=== PATIENT | female | born 1990 | race Caucasian/White ===

== ENCOUNTER 2017-04-08 07:54 | Emergency (ER) | payer OTHER ==
[~2017-04-08] VITALS: Ht 170.2 cm; Wt 113.6 kg
[2017-04-08] MEDS ORDERED: ESCI20TA PO (08:07)
[2017-04-08] MEDS ORDERED: ATOR1TAB21 PO (08:07)
[2017-04-08] MEDS ORDERED: DOXE10CA PO (08:07)
[2017-04-08] MEDS ORDERED: TOPI50TA9 PO (08:07)
[2017-04-08] MEDS ORDERED: CLON0.2T PO (08:07)
[2017-04-08] MEDS ORDERED: METH10CO PO (08:07)
[2017-04-08] MEDS ORDERED: ONDANSETRON 4 MG ORAL DISINTEGRATING TAB (S0181) PO ONE (08:30)
[2017-04-08] MEDS ORDERED: KETOROLAC 60 MG/2 ML VIAL (J1885) IM ONE (08:30)
[2017-04-08] MEDS ORDERED: ZOFR4TAB3 PO (08:53)
[2017-04-08 09:10] VITALS: BP 140/93
== END 2017-04-08 09:11 | disposition home or self-care (01) ==
LOC: M ED 07:54
DX: J06.9 Acute upper respiratory infection, unspecified (principal); I10 Essential (primary) hypertension; E78.00 Pure hypercholesterolemia, unspecified; E28.2 Polycystic ovarian syndrome; F11.10 Opioid abuse, uncomplicated; Z79.899 Other long term (current) drug therapy; F17.200 Nicotine dependence, unspecified, uncomplicated
CPT/HCPCS: 87880; 96372; 99284; J1885

== ENCOUNTER 2017-04-23 11:02 | Emergency (ER) | payer OTHER ==
[~2017-04-23] VITALS: Ht 170.2 cm; Wt 110.0 kg
[~2017-04-23 11:02] MED LIST: ATOR1TAB21 PO; CLON0.2T PO; DOXE10CA PO; ESCI20TA PO; METH10CO PO; TOPI50TA9 PO; ZOFR4TAB3 PO
[2017-04-23] MEDS ORDERED: METF500T13 PO (11:22)
[2017-04-23] MEDS ORDERED: NS 1,000 ML IV ONE (12:00)
[2017-04-23 12:32] LABS: BASO # 0.1 10^3/uL (0.0-0.2); BASO % 0.5 % (0.0-1.0); EOS # 0.2 10^3/uL (0.0-0.50); EOS % 2.4 % (0.0-3.0); IMMATURE GRANULOCYTE % 0.2 % (0-0); LYMPH # 3.8 10^3/uL (1.5-6.5); LYMPH % 40.8 % (24.0-44.0); MEAN CORPUSCULAR HEMOGLOBIN 30.2 pg (27.0-33.0); MEAN CORPUSCULAR HGB CONC 33.5 g/dl (32.0-36.5); MEAN CORPUSCULAR VOLUME 90.2 fl (80.0-96.0); MONO # 0.6 10^3/uL (0.0-0.8); MONO % 6.9 % (0.0-5.0); NEUTROPHILS # 4.6 10^3/uL (1.8-7.7); NEUTROPHILS % 49.2 % (36.0-66.0); PLATELET COUNT, AUTOMATED 375 10^3/uL (150-450); RED CELL DISTRIBUTION WIDTH 12.4 % (11.5-14.5); WHITE BLOOD COUNT 9.3 10^3/uL (4.0-10.0)
[2017-04-23 13:10] LABS: ALBUMIN 4.1 GM/DL (3.2-5.2); ALBUMIN/GLOBULIN RATIO 0.77 (1.00-1.93); ALKALINE PHOSPHATASE 77 U/L (45-117); ALT/SGPT 29 U/L (12-78); ANION GAP 6 MEQ/L (8-16); AST/SGOT 23 U/L (7-37); BILIRUBIN,DIRECT 0.1 MG/DL (0.0-0.2); BILIRUBIN,TOTAL 0.7 MG/DL (0.2-1.0); BLOOD UREA NITROGEN 13 MG/DL (7-18); CALCIUM LEVEL 9.8 MG/DL (8.5-10.1); CARBON DIOXIDE LEVEL 30 MEQ/L (21-32); CHLORIDE LEVEL 98 MEQ/L (98-107); GLOMERULAR FILTRATION RATE > 60.0 (>60); GLUCOSE, FASTING 87 MG/DL (70-105); MAGNESIUM LEVEL 2.3 MG/DL (1.8-2.4); PHOSPHORUS LEVEL 4.3 MG/DL (2.5-4.9); POTASSIUM SERUM 3.7 MEQ/L (3.5-5.1); SODIUM LEVEL 134 MEQ/L (136-145); TOTAL PROTEIN 9.4 GM/DL (6.4-8.2)
[2017-04-23 14:01] VITALS: BP 104/63
== END 2017-04-23 14:04 | disposition home or self-care (01) ==
LOC: M ED 11:02
DX: F41.9 Anxiety disorder, unspecified (principal); J06.9 Acute upper respiratory infection, unspecified; E86.0 Dehydration; I10 Essential (primary) hypertension; E78.00 Pure hypercholesterolemia, unspecified; E28.2 Polycystic ovarian syndrome; N80.9 Endometriosis, unspecified; B19.20 Unspecified viral hepatitis C without hepatic coma; F15.21 Other stimulant dependence, in remission; Z79.899 Other long term (current) drug therapy; Z79.891 Long term (current) use of opiate analgesic; F17.210 Nicotine dependence, cigarettes, uncomplicated

== ENCOUNTER → 2017-06-25 | Outpatient (CLI) | payer OTHER ==
[2017-06-25 10:15] LABS: HEMATOCRIT 35.9 % (36.0-47.0); HEMOGLOBIN 11.8 g/dl (12.0-16.0); MEAN CORPUSCULAR HEMOGLOBIN 29.3 pg (27.0-33.0); MEAN CORPUSCULAR HGB CONC 32.9 g/dl (32.0-36.5); MEAN CORPUSCULAR VOLUME 89.1 fl (80.0-96.0); PLATELET COUNT, AUTOMATED 316 10^3/uL (150-450); RED BLOOD COUNT 4.03 10^6/uL (4.00-5.40); RED CELL DISTRIBUTION WIDTH 12.5 % (11.5-14.5); WHITE BLOOD COUNT 9.5 10^3/uL (4.0-10.0)
[2017-06-25 10:24] LABS: ALBUMIN 3.8 GM/DL (3.2-5.2); ALBUMIN/GLOBULIN RATIO 0.97 (1.00-1.93); ALKALINE PHOSPHATASE 74 U/L (45-117); ALT/SGPT 23 U/L (12-78); ANION GAP 6 MEQ/L (8-16); AST/SGOT 18 U/L (7-37); BILIRUBIN,TOTAL 0.3 MG/DL (0.2-1.0); BLOOD UREA NITROGEN 9 MG/DL (7-18); CALCIUM LEVEL 9.3 MG/DL (8.5-10.1); CARBON DIOXIDE LEVEL 32 MEQ/L (21-32); CHLORIDE LEVEL 99 MEQ/L (98-107); CREATININE FOR GFR 0.58 MG/DL (0.55-1.02); GLOMERULAR FILTRATION RATE > 60.0 (>60); GLUCOSE, FASTING 107 MG/DL (70-105); POTASSIUM SERUM 4.2 MEQ/L (3.5-5.1); SODIUM LEVEL 137 MEQ/L (136-145); TOTAL PROTEIN 7.7 GM/DL (6.4-8.2)
[2017-06-25 11:46] LABS: CHLAMYDIA DNA AMPLIFICATION NEGATIVE (NEGATIVE); GC DNA AMPLIFICATION NEGATIVE (NEGATIVE)
[2017-06-25 18:06] LABS: HEPATITIS B SURFACE ANTIGEN NEGATIVE (NEGATIVE)
[2017-06-25 18:11] LABS: HIV 1&2 SCREEN CENTAUR NEGATIVE (NEGATIVE)
[2017-06-25 18:17] LABS: HEPATITIS C VIRUS ABY INDEX > 11.0 INDEX (<0.8)
[2017-06-30 00:08] LABS: HCV RNA NAA QUALITATIVE Negative (Negative)
== END ==
LOC: M WUC 08:06
DX: F11.20 Opioid dependence, uncomplicated (principal)
CPT/HCPCS: 80053

== ENCOUNTER 2017-11-11 11:58 | Inpatient (IN) | payer OTHER, SELFPAY ==
[2017-11-11 13:34] LABS: HEMATOCRIT 37.1 % (36.0-47.0); HEMOGLOBIN 12.4 g/dl (12.0-15.5); MEAN CORPUSCULAR HEMOGLOBIN 28.2 pg (27.0-33.0); MEAN CORPUSCULAR HGB CONC 33.4 g/dl (32.0-36.5); MEAN CORPUSCULAR VOLUME 84.5 fl (80.0-96.0); PLATELET COUNT, AUTOMATED 330 10^3/uL (150-450); RED BLOOD COUNT 4.39 10^6/uL (4.00-5.40); RED CELL DISTRIBUTION WIDTH 13.2 % (11.5-14.5)
[2017-11-11 13:59] LABS: CONTROL LINE HCG INT CTR LINE PRESENT; HCG, SERUM QUALITATIVE NEGATIVE (NEGATIVE)
[2017-11-11 14:19] LABS: ALBUMIN 3.8 GM/DL (3.2-5.2); ALKALINE PHOSPHATASE 66 U/L (45-117); ALT/SGPT 30 U/L (12-78); ANION GAP 9 MEQ/L (8-16); AST/SGOT 17 U/L (7-37); BILIRUBIN,DIRECT 0.1 MG/DL (0.0-0.2); BILIRUBIN,TOTAL 0.4 MG/DL (0.2-1.0); BLOOD UREA NITROGEN 8 MG/DL (7-18); CARBON DIOXIDE LEVEL 24 MEQ/L (21-32); CHLORIDE LEVEL 111 MEQ/L (98-107); CREATININE FOR GFR 0.71 MG/DL (0.55-1.30); ETHYL ALCOHOL (ETHANOL) < 0.003 % (0.000-0.010); GLOMERULAR FILTRATION RATE > 60.0 (>60); GLUCOSE, FASTING 128 MG/DL (70-100); POTASSIUM SERUM 3.9 MEQ/L (3.5-5.1); SALICYLATE LEVEL < 1.7 MG/DL (5.0-30.0); SODIUM LEVEL 144 MEQ/L (136-145); TOTAL PROTEIN 7.6 GM/DL (6.4-8.2)
[2017-11-11 14:42] LABS: AMPHETAMINES LEVEL URINE NEGATIVE (NEGATIVE); BARBITURATES URINE NEGATIVE (NEGATIVE); BENZODIAZEPINES URINE NEGATIVE (NEGATIVE); CANNABINOIDS URINE NEGATIVE (NEGATIVE); COCAINE METABOLITE URINE NEGATIVE (NEGATIVE); METHADONE URINE NEGATIVE (NEGATIVE); OPIATES URINE NEGATIVE (NEGATIVE); PHENCYCLIDINE URINE NEGATIVE (NEGATIVE)
[2017-11-11 15:28] LABS: ACETAMINOPHEN LEVEL < 2.0 UG/ML (10.0-30.0)
[2017-11-11] MEDS ORDERED: MAALOX 30 ML SUSP *UDC PO (16:15)
[2017-11-11] MEDS ORDERED: MOM 30ML SUSPENSION UDC PO (16:15)
[2017-11-11] MEDS: rOPINIRole 1MG TAB PO (21:01)
[2017-11-11] MEDS: zolPIDEM TARTRATE 5 MG TAB PO (21:01)
[2017-11-11] MEDS: GABAPENTIN 300 MG CAP PO (21:01)
[2017-11-11] MEDS: cloNIDine 0.2 MG TAB PO (21:04)
[2017-11-12] MEDS: cloNIDine 0.2 MG TAB PO ×3 (08:03→21:08)
[2017-11-12] MEDS: NICOTINE 21MG/24HR 1 EA TRANSDERMAL TD (08:04)
[2017-11-12] MEDS: CitaloPRAM (CeleXA) 20 MG TAB PO (08:04)
[2017-11-12] MEDS: GABAPENTIN 300 MG CAP PO ×3 (08:04→21:05)
[2017-11-12] MEDS: OMEPRAZOLE 20 MG CAP PO (11:12)
[2017-11-12 11:15] LABS: HEMATOCRIT 38.5 % (36.0-47.0); MEAN CORPUSCULAR HEMOGLOBIN 28.2 pg (27.0-33.0); MEAN CORPUSCULAR HGB CONC 33.8 g/dl (32.0-36.5); MEAN CORPUSCULAR VOLUME 83.5 fl (80.0-96.0); PLATELET COUNT, AUTOMATED 357 10^3/uL (150-450); RED BLOOD COUNT 4.61 10^6/uL (4.00-5.40); RED CELL DISTRIBUTION WIDTH 13.2 % (11.5-14.5); WHITE BLOOD COUNT 9.5 10^3/uL (4.0-10.0)
[2017-11-12 11:43] LABS: ALBUMIN 4.1 GM/DL (3.2-5.2); ALBUMIN/GLOBULIN RATIO 1.05 (1.00-1.93); ALKALINE PHOSPHATASE 70 U/L (45-117); ALT/SGPT 67 U/L (12-78); ANION GAP 8 MEQ/L (8-16); AST/SGOT 35 U/L (7-37); BILIRUBIN,TOTAL 0.5 MG/DL (0.2-1.0); BLOOD UREA NITROGEN 10 MG/DL (7-18); CALCIUM LEVEL 9.2 MG/DL (8.5-10.1); CARBON DIOXIDE LEVEL 25 MEQ/L (21-32); CHLORIDE LEVEL 107 MEQ/L (98-107); CPK CREATINE PHOSPHOKINASE 55 U/L (26-192); CREATININE FOR GFR 0.72 MG/DL (0.55-1.30); GLOMERULAR FILTRATION RATE > 60.0 (>60); GLUCOSE, FASTING 92 MG/DL (70-100); MAGNESIUM LEVEL 2.3 MG/DL (1.8-2.4); POTASSIUM SERUM 3.8 MEQ/L (3.5-5.1); SODIUM LEVEL 140 MEQ/L (136-145)
[2017-11-12 12:07] LABS: ESTIMATED AVERAGE GLUCOSE 105 MG/DL (60-110); HEMOGLOBIN A1c 5.3 %
[2017-11-12] MEDS: ONDANSETRON 4 MG TAB (S0181) PO (19:43)
[2017-11-12] MEDS: zolPIDEM TARTRATE 5 MG TAB PO (21:09)
[2017-11-12] MEDS: rOPINIRole 1MG TAB PO (21:09)
[2017-11-13] MEDS: NICOTINE 21MG/24HR 1 EA TRANSDERMAL TD (08:05)
[2017-11-13] MEDS: cloNIDine 0.2 MG TAB PO ×3 (08:06→20:10)
[2017-11-13] MEDS: OMEPRAZOLE 20 MG CAP PO (08:06)
[2017-11-13] MEDS: CitaloPRAM (CeleXA) 20 MG TAB PO (08:06)
[2017-11-13] MEDS: GABAPENTIN 300 MG CAP PO ×2 (08:06→15:20)
[2017-11-13] MEDS: ONDANSETRON 4 MG TAB (S0181) PO ×3 (08:06→20:10)
[2017-11-13] MEDS: zolPIDEM TARTRATE 10MG TAB PO (20:11)
[2017-11-13] MEDS: ACETAMINOPHEN TAB 650MG DOSE (2X325MG) PO (20:11)
[2017-11-13] MEDS: GABAPENTIN 400 MG CAP PO (20:11)
[2017-11-13] MEDS: rOPINIRole 1MG TAB PO (20:11)
[2017-11-14] MEDS: ONDANSETRON 4 MG TAB (S0181) PO ×3 (06:17→16:35)
[2017-11-14] MEDS: cloNIDine 0.2 MG TAB PO ×4 (08:19→20:01)
[2017-11-14] MEDS: OMEPRAZOLE 20 MG CAP PO (08:19)
[2017-11-14] MEDS: CitaloPRAM (CeleXA) 20 MG TAB PO (08:19)
[2017-11-14] MEDS: GABAPENTIN 400 MG CAP PO ×3 (08:19→20:01)
[2017-11-14] MEDS: NICOTINE 21MG/24HR 1 EA TRANSDERMAL TD (08:19)
[2017-11-14] MEDS: ACETAMINOPHEN TAB 650MG DOSE (2X325MG) PO ×2 (11:43→20:01)
[2017-11-14] MEDS: rOPINIRole 1MG TAB PO (20:01)
[2017-11-14] MEDS: zolPIDEM TARTRATE 10MG TAB PO (20:59)
[2017-11-15] MEDS: ONDANSETRON 4 MG TAB (S0181) PO (05:42)
[2017-11-15] MEDS: CitaloPRAM (CeleXA) 20 MG TAB PO (08:23)
[2017-11-15] MEDS: cloNIDine 0.2 MG TAB PO ×2 (08:23→13:06)
[2017-11-15] MEDS: GABAPENTIN 400 MG CAP PO (08:23)
[2017-11-15] MEDS: OMEPRAZOLE 20 MG CAP PO (08:23)
[2017-11-15] MEDS: NICOTINE 21MG/24HR 1 EA TRANSDERMAL TD (08:25)
== END 2017-11-15 14:45 | disposition home or self-care (01) | DRG 756 ==
LOC: M ED 11:58 → M ED INP 16:08 → M PSY 17:15
DX: F41.9 Anxiety disorder, unspecified (principal); F32.9 Major depressive disorder, single episode, unspecified; F19.10 Other psychoactive substance abuse, uncomplicated; E66.9 Obesity, unspecified; M79.662 Pain in left lower leg; M79.661 Pain in right lower leg; F17.210 Nicotine dependence, cigarettes, uncomplicated; G25.81 Restless legs syndrome; K21.9 Gastro-esophageal reflux disease without esophagitis; Z86.19 Personal history of other infectious and parasitic diseases; Z91.5 Personal history of self-harm; Z68.37 Body mass index [BMI] 37.0-37.9, adult; Z79.899 Other long term (current) drug therapy

== ENCOUNTER 2018-01-31 19:09 | Inpatient (IN) | payer OTHER, MEDICAID ==
[2018-01-31 20:00] LABS: HEMATOCRIT 38.4 % (36.0-47.0); HEMOGLOBIN 12.4 g/dl (12.0-15.5); MEAN CORPUSCULAR HGB CONC 32.3 g/dl (32.0-36.5); MEAN CORPUSCULAR VOLUME 86.7 fl (80.0-96.0); PLATELET COUNT, AUTOMATED 277 10^3/uL (150-450); RED BLOOD COUNT 4.43 10^6/uL (4.00-5.40); WHITE BLOOD COUNT 8.9 10^3/uL (4.0-10.0)
[2018-01-31 20:07] LABS: CONTROL LINE HCG INT CTR LINE PRESENT; HCG, SERUM QUALITATIVE NEGATIVE (NEGATIVE)
[2018-01-31 20:11] LABS: AMPHETAMINES LEVEL URINE NEGATIVE (NEGATIVE); BARBITURATES URINE NEGATIVE (NEGATIVE); BENZODIAZEPINES URINE NEGATIVE (NEGATIVE); CANNABINOIDS URINE POSITIVE (NEGATIVE); COCAINE METABOLITE URINE POSITIVE (NEGATIVE); METHADONE URINE NEGATIVE (NEGATIVE); OPIATES URINE NEGATIVE (NEGATIVE); PHENCYCLIDINE URINE NEGATIVE (NEGATIVE)
[2018-01-31 20:22] LABS: ACETAMINOPHEN LEVEL < 2.0 UG/ML (10.0-30.0); ALBUMIN 3.9 GM/DL (3.2-5.2); ALBUMIN/GLOBULIN RATIO 1.03 (1.00-1.93); ALKALINE PHOSPHATASE 62 U/L (45-117); ALT/SGPT 25 U/L (12-78); ANION GAP 7 MEQ/L (8-16); AST/SGOT 11 U/L (7-37); BILIRUBIN,DIRECT 0.2 MG/DL (0.0-0.2); BILIRUBIN,TOTAL 0.8 MG/DL (0.2-1.0); BLOOD UREA NITROGEN 7 MG/DL (7-18); CALCIUM LEVEL 8.9 MG/DL (8.5-10.1); CARBON DIOXIDE LEVEL 26 MEQ/L (21-32); CHLORIDE LEVEL 107 MEQ/L (98-107); CREATININE FOR GFR 0.78 MG/DL (0.55-1.30); ETHYL ALCOHOL (ETHANOL) < 0.003 % (0.000-0.010); GLOMERULAR FILTRATION RATE > 60.0 (>60); GLUCOSE, FASTING 121 MG/DL (70-100); POTASSIUM SERUM 3.9 MEQ/L (3.5-5.1); SALICYLATE LEVEL 2.7 MG/DL (5.0-30.0); SODIUM LEVEL 140 MEQ/L (136-145); THYROID STIMULATING HORMONE 0.443 uIU/ML (0.358-3.740); TOTAL PROTEIN 7.7 GM/DL (6.4-8.2)
[2018-01-31] MEDS ORDERED: traZODone 50 MG TAB PO (21:15)
[2018-01-31] MEDS ORDERED: MAALOX 30 ML SUSP *UDC PO (21:15)
[2018-01-31] MEDS ORDERED: MOM 30ML SUSPENSION UDC PO (21:15)
[2018-02-01] MEDS: cloNIDine 0.2 MG TAB PO (08:08)
[2018-02-01] MEDS: GABAPENTIN 400 MG CAP PO ×3 (08:09→23:05)
[2018-02-01] MEDS: ESCITALOPRAM OXALATE 10 MG TAB (LEXAPRO) PO (08:09)
[2018-02-01] MEDS: cloNIDine 0.1 MG TAB PO ×3 (12:00→23:04)
[2018-02-01] MEDS: BUPRENORPHINE/NALOXONE 8-2MG SUBLINGUAL TABLET(SUBOXONE) SL (13:53)
[2018-02-01] MEDS: NICOTINE 21MG/24HR 1 EA TRANSDERMAL TD (16:03)
[2018-02-01] MEDS ORDERED: zolPIDEM TARTRATE 10MG TAB PO (21:00)
[2018-02-01] MEDS: QUEtiapine FUMARATE 50 MG TAB PO (23:04)
[2018-02-02] MEDS: cloNIDine 0.1 MG TAB PO ×4 (06:27→23:28)
[2018-02-02] MEDS: GABAPENTIN 400 MG CAP PO ×3 (08:20→21:54)
[2018-02-02] MEDS: ESCITALOPRAM OXALATE 10 MG TAB (LEXAPRO) PO (08:20)
[2018-02-02] MEDS: BUPRENORPHINE/NALOXONE 8-2MG SUBLINGUAL TABLET(SUBOXONE) SL (09:34)
[2018-02-02] MEDS ORDERED: QUEtiapine FUMARATE 50 MG TAB PO (21:00)
[2018-02-02] MEDS: BENZTROPINE 1 MG TAB PO (21:54)
[2018-02-02] MEDS: QUEtiapine FUMARATE 200 MG TAB PO (21:54)
[2018-02-02] MEDS: PRAZOSIN 1 MG CAP PO (21:55)
[2018-02-03] MEDS: cloNIDine 0.1 MG TAB PO ×4 (06:00→23:14)
[2018-02-03] MEDS: BUPRENORPHINE/NALOXONE 8-2MG SUBLINGUAL TABLET(SUBOXONE) SL (09:19)
[2018-02-03] MEDS: ESCITALOPRAM OXALATE 10 MG TAB (LEXAPRO) PO (09:19)
[2018-02-03] MEDS: GABAPENTIN 400 MG CAP PO ×3 (09:20→20:39)
[2018-02-03] MEDS: BENZTROPINE 1 MG TAB PO (20:39)
[2018-02-03] MEDS: PRAZOSIN 1 MG CAP PO (20:39)
[2018-02-03] MEDS: QUEtiapine FUMARATE 100 MG TAB PO (20:41)
[2018-02-03] MEDS: PILL CRUSHER/CUTTER 1 EACH XX (20:41)
[2018-02-03] MEDS: ACETAMINOPHEN TAB 650MG DOSE (2X325MG) PO (20:42)
[2018-02-04] MEDS: cloNIDine 0.1 MG TAB PO ×4 (05:55→23:29)
[2018-02-04] MEDS: GABAPENTIN 400 MG CAP PO ×3 (09:08→20:55)
[2018-02-04] MEDS: ESCITALOPRAM OXALATE 10 MG TAB (LEXAPRO) PO (09:08)
[2018-02-04] MEDS: BUPRENORPHINE/NALOXONE 8-2MG SUBLINGUAL TABLET(SUBOXONE) SL (09:34)
[2018-02-04] MEDS: PILL CRUSHER/CUTTER 1 EACH XX (09:35)
[2018-02-04] MEDS: PRAZOSIN 1 MG CAP PO (20:55)
[2018-02-04] MEDS: BENZTROPINE 1 MG TAB PO (20:55)
[2018-02-04] MEDS: QUEtiapine FUMARATE 100 MG TAB PO (20:55)
[2018-02-05] MEDS: cloNIDine 0.1 MG TAB PO ×4 (06:15→23:05)
[2018-02-05] MEDS: BUPRENORPHINE/NALOXONE 8-2MG SUBLINGUAL TABLET(SUBOXONE) SL (09:29)
[2018-02-05] MEDS: ESCITALOPRAM OXALATE 10 MG TAB (LEXAPRO) PO (09:29)
[2018-02-05] MEDS: GABAPENTIN 400 MG CAP PO ×3 (09:29→20:30)
[2018-02-05] MEDS: BENZTROPINE 1 MG TAB PO (20:29)
[2018-02-05] MEDS: PRAZOSIN 1 MG CAP PO (20:30)
[2018-02-05] MEDS: QUEtiapine FUMARATE 100 MG TAB PO (20:30)
[2018-02-06] MEDS: cloNIDine 0.1 MG TAB PO ×4 (06:16→22:54)
[2018-02-06] MEDS: BUPRENORPHINE/NALOXONE 8-2MG SUBLINGUAL TABLET(SUBOXONE) SL (10:03)
[2018-02-06] MEDS: GABAPENTIN 400 MG CAP PO ×3 (10:03→20:55)
[2018-02-06] MEDS: ESCITALOPRAM OXALATE 10 MG TAB (LEXAPRO) PO (10:03)
[2018-02-06] MEDS: ACETAMINOPHEN TAB 650MG DOSE (2X325MG) PO ×2 (10:04→18:02)
[2018-02-06] MEDS: BENZTROPINE 1 MG TAB PO (20:55)
[2018-02-06] MEDS: QUEtiapine FUMARATE 100 MG TAB PO (20:55)
[2018-02-06] MEDS: PRAZOSIN 1 MG CAP PO (20:55)
[2018-02-07] MEDS: cloNIDine 0.1 MG TAB PO ×4 (06:00→23:01)
[2018-02-07] MEDS: ESCITALOPRAM OXALATE 10 MG TAB (LEXAPRO) PO (09:04)
[2018-02-07] MEDS: GABAPENTIN 400 MG CAP PO ×3 (09:04→20:47)
[2018-02-07] MEDS: BUPRENORPHINE/NALOXONE 8-2MG SUBLINGUAL TABLET(SUBOXONE) SL (09:06)
[2018-02-07] MEDS: QUEtiapine FUMARATE 100 MG TAB PO (20:46)
[2018-02-07] MEDS: BENZTROPINE 1 MG TAB PO (20:46)
[2018-02-07] MEDS: PRAZOSIN 1 MG CAP PO (20:47)
[2018-02-07] MEDS: ACETAMINOPHEN TAB 650MG DOSE (2X325MG) PO (23:04)
[2018-02-08] MEDS: cloNIDine 0.1 MG TAB PO ×2 (06:00→11:20)
[2018-02-08] MEDS: ESCITALOPRAM OXALATE 10 MG TAB (LEXAPRO) PO (09:15)
[2018-02-08] MEDS: BUPRENORPHINE/NALOXONE 8-2MG SUBLINGUAL TABLET(SUBOXONE) SL (09:15)
[2018-02-08] MEDS: GABAPENTIN 400 MG CAP PO (09:15)
== END 2018-02-08 13:25 | disposition home or self-care (01) | DRG 751 ==
LOC: M PSY 02-04 19:24 → M ED 19:09 → M ED INP 21:13 → M PSY 22:15
DX: F33.1 Major depressive disorder, recurrent, moderate (principal); R45.851 Suicidal ideations; Z79.899 Other long term (current) drug therapy; G25.81 Restless legs syndrome; K21.9 Gastro-esophageal reflux disease without esophagitis; E66.9 Obesity, unspecified; Z68.38 Body mass index [BMI] 38.0-38.9, adult; G47.00 Insomnia, unspecified; F17.210 Nicotine dependence, cigarettes, uncomplicated; N80.9 Endometriosis, unspecified; E28.2 Polycystic ovarian syndrome

== ENCOUNTER → 2018-03-11 | Outpatient (CLI) | payer OTHER | LOC: M OUTALCOH 08:12 | DX: F11.20 Opioid dependence, uncomplicated (principal) ==

== ENCOUNTER 2018-03-28 09:29 | Outpatient (RCR) | payer OTHER | END 2018-04-13 | LOC: M OUTALCOH 04-06 15:00 | DX: F11.20 Opioid dependence, uncomplicated (principal); F14.20 Cocaine dependence, uncomplicated ==

== ENCOUNTER 2018-04-15 08:32 | Outpatient (RCR) | payer OTHER | END 2018-05-13 | LOC: M OUTALCOH 08:32 | DX: F11.20 Opioid dependence, uncomplicated (principal); F14.20 Cocaine dependence, uncomplicated ==

== ENCOUNTER 2018-07-02 17:08 | Emergency (ER) | payer OTHER ==
[~2018-07-02] VITALS: Ht 170.2 cm; Wt 130.0 kg
[~2018-07-02 17:08] MED LIST changes: +AMBI10TA PO; +AMBI5TAB PO; +BACT800T5 PO; +BENZ-52 PO; +CATA0.2T PO; +CIPR-249 PO; +CLONI1TA PO; +GABA-845 PO; +LEXA1TAB2 PO; +METF500T13 PO; +MINI1CAP PO; +NEUR400C PO; +NEUR600T PO; +NICO21PAT TD; +OMEP10CASR PO; +OMEP20CA3 PO; +PYRI1TAB5 PO; +QUET1TAB8 PO; +REQU1TAB16 PO; +SUBO12MI; +SUBO12MI SL; +ZOFR4TAB14 PO; -ZOFR4TAB3 PO; +ZOLP10TA2 PO
[2018-07-02] MEDS ORDERED: SUBO8MIS PO (17:16)
[2018-07-02 17:50] LABS: HEMATOCRIT 43.2 % (36.0-47.0); HEMOGLOBIN 14.6 g/dl (12.0-15.5); MEAN CORPUSCULAR HGB CONC 33.8 g/dl (32.0-36.5); MEAN CORPUSCULAR VOLUME 85.9 fl (80.0-96.0); PLATELET COUNT, AUTOMATED 374 10^3/uL (150-450); RED BLOOD COUNT 5.03 10^6/uL (4.00-5.40); WHITE BLOOD COUNT 9.9 10^3/uL (4.0-10.0)
[2018-07-02 18:25] LABS: HCG, SERUM QUALITATIVE NEGATIVE (NEGATIVE)
[2018-07-02 18:28] LABS: AMPHETAMINES LEVEL URINE NEGATIVE (NEGATIVE); BARBITURATES URINE NEGATIVE (NEGATIVE); BENZODIAZEPINES URINE NEGATIVE (NEGATIVE); CANNABINOIDS URINE POSITIVE (NEGATIVE); COCAINE METABOLITE URINE POSITIVE (NEGATIVE); METHADONE URINE NEGATIVE (NEGATIVE); OPIATES URINE NEGATIVE (NEGATIVE); PHENCYCLIDINE URINE NEGATIVE (NEGATIVE)
[2018-07-02 18:41] LABS: ACETAMINOPHEN LEVEL < 2.0 UG/ML (10.0-30.0); ALBUMIN 4.4 GM/DL (3.2-5.2); ALT/SGPT 21 U/L (12-78); BILIRUBIN,DIRECT 0.1 MG/DL (0.0-0.2); BILIRUBIN,TOTAL 0.5 MG/DL (0.2-1.0); BLOOD UREA NITROGEN 14 MG/DL (7-18); CALCIUM LEVEL 8.9 MG/DL (8.5-10.1); CARBON DIOXIDE LEVEL 24 MEQ/L (21-32); CHLORIDE LEVEL 103 MEQ/L (98-107); CREATININE FOR GFR 1.08 MG/DL (0.55-1.30); ETHYL ALCOHOL (ETHANOL) < 0.003 % (0.000-0.010); GLOMERULAR FILTRATION RATE > 60.0 (>60); GLUCOSE, FASTING 137 MG/DL (70-100); POTASSIUM SERUM 3.8 MEQ/L (3.5-5.1); SALICYLATE LEVEL < 1.7 MG/DL (5.0-30.0); SODIUM LEVEL 138 MEQ/L (136-145); TOTAL PROTEIN 8.5 GM/DL (6.4-8.2)
[2018-07-02] MEDS ORDERED: QUEtiapine FUMARATE 100 MG TAB PO ONE (21:45)
[2018-07-02] MEDS ORDERED: BENZTROPINE 1 MG TAB PO ONE (21:45)
[2018-07-02] MEDS ORDERED: GABAPENTIN 400 MG CAP PO ONE (21:45)
[2018-07-02] MEDS ORDERED: PRAZOSIN 1 MG CAP PO SCH ×2 (21:45→22:30)
[2018-07-02] MEDS ORDERED: cloNIDine 0.1 MG TAB PO ONE (21:45)
[2018-07-02] MEDS ORDERED: CLON0.2T PO (22:18)
[2018-07-02] MEDS ORDERED: PRAZ5CAP PO (22:18)
[2018-07-02] MEDS ORDERED: cloNIDine 0.2 MG TAB PO ONE (22:30)
[2018-07-02] MEDS ORDERED: PRAZOSIN 1 MG CAP PO ONE (22:30)
[2018-07-03] MEDS ORDERED: BUPRENORPHINE/NALOXONE 8-2MG SUBLINGUAL TABLET(SUBOXONE) SL ONE (09:00)
[2018-07-03] MEDS ORDERED: GABAPENTIN 400 MG CAP PO ONE ×3 (09:45→21:00)
[2018-07-03] MEDS ORDERED: ESCITALOPRAM OXALATE 10 MG TAB (LEXAPRO) PO ONE (09:45)
[2018-07-03] MEDS ORDERED: cloNIDine 0.2 MG TAB PO ONE ×4 (09:45→21:00)
[2018-07-03] MEDS ORDERED: QUEtiapine FUMARATE 50 MG TAB PO ONE (20:45)
[2018-07-03] MEDS ORDERED: QUEtiapine FUMARATE 200 MG TAB PO ONE ×2 (21:00)
[2018-07-03] MEDS ORDERED: PRAZOSIN 1 MG CAP PO SCH (21:00)
[2018-07-03] MEDS ORDERED: PRAZOSIN 1 MG CAP PO ONE (21:00)
[2018-07-03 21:51] VITALS: BP 115/66
[2018-07-03 22:37] VITALS: BP 106/68
== END 2018-07-03 22:46 | disposition short-term general hospital (02) ==
LOC: M ED 17:08
DX: R45.851 Suicidal ideations (principal); F32.9 Major depressive disorder, single episode, unspecified; F14.10 Cocaine abuse, uncomplicated; F41.9 Anxiety disorder, unspecified; E28.2 Polycystic ovarian syndrome; N80.9 Endometriosis, unspecified; F17.200 Nicotine dependence, unspecified, uncomplicated; Z79.899 Other long term (current) drug therapy
CPT/HCPCS: 36415; 80048; 80076; 80307; 84443; 84703; 85027; 99284; G0480

== ENCOUNTER 2018-10-03 12:16 | Emergency (ER) | payer OTHER ==
[~2018-10-03] VITALS: Ht 170.2 cm; Wt 116.0 kg
[~2018-10-03 12:16] MED LIST changes: +PRAZ5CAP PO; +SUBO8MIS PO
[2018-10-03] MEDS ORDERED: RANI75TA13 (12:27)
[2018-10-03] MEDS ORDERED: METF500T13 (12:27)
[2018-10-03] MEDS ORDERED: CLON0.3T (12:27)
[2018-10-03] MEDS ORDERED: ROPI1TAB (12:27)
[2018-10-03] MEDS ORDERED: cloNIDine 0.1 MG TAB PO ONE (13:45)
[2018-10-03 14:44] LABS: BASO # 0.1 10^3/uL (0.0-0.2); BASO % 0.7 % (0.0-1.0); EOS # 0.2 10^3/uL (0.0-0.50); EOS % 2.8 % (0.0-3.0); HEMATOCRIT 41.1 % (36.0-47.0); HEMOGLOBIN 13.5 g/dl (12.0-15.5); LYMPH # 2.2 10^3/uL (1.5-6.5); LYMPH % 29.3 % (24.0-44.0); MEAN CORPUSCULAR HEMOGLOBIN 28.4 pg (27.0-33.0); MEAN CORPUSCULAR HGB CONC 32.8 g/dl (32.0-36.5); MEAN CORPUSCULAR VOLUME 86.5 fl (80.0-96.0); MONO # 0.5 10^3/uL (0.0-0.8); MONO % 6.5 % (0.0-5.0); NEUTROPHILS # 4.5 10^3/uL (1.8-7.7); NEUTROPHILS % 60.3 % (36.0-66.0); PLATELET COUNT, AUTOMATED 294 10^3/uL (150-450); RED BLOOD COUNT 4.75 10^6/uL (4.00-5.40); WHITE BLOOD COUNT 7.4 10^3/uL (4.0-10.0)
[2018-10-03] MEDS ORDERED: ONDANSETRON 4MG/2ML VIAL (J2405) IV ONE (15:15)
[2018-10-03] MEDS ORDERED: CLON0.3T PO (15:16)
[2018-10-03 15:18] LABS: BLOOD UREA NITROGEN 7 MG/DL (7-18); CALCIUM LEVEL 9.5 MG/DL (8.5-10.1); CARBON DIOXIDE LEVEL 26 MEQ/L (21-32); CHLORIDE LEVEL 108 MEQ/L (98-107); CPK CREATINE PHOSPHOKINASE 136 U/L (26-192); CREATININE FOR GFR 0.64 MG/DL (0.55-1.30); GLOMERULAR FILTRATION RATE > 60.0 (>60); GLUCOSE, FASTING 94 MG/DL (70-100); MB/CK RELATIVE INDEX 1.25 (< OR =4); POTASSIUM SERUM 4.2 MEQ/L (3.5-5.1); SODIUM LEVEL 140 MEQ/L (136-145); TROPONIN I < 0.02 NG/ML (< 0.10)
[2018-10-03] MEDS ORDERED: MACR100C43 PO (16:11)
[2018-10-03 16:23] VITALS: BP 136/76
--- NOTE | 2018-10-03 17:32 | REP ---
RENAL AND BLADDER ULTRASOUND: Real-time sonographic evaluation of the kidneys are performed. The kidneys are normal in size and echotexture, right measuring 12.8 x 4.9 x 2.8 cm and left kidney 12.7 x 5.0 x 4.6 cm. There is no hydronephrosis or nephrolithiasis bilaterally. No renal mass is seen. Urinary bladder is mildly distended and grossly unremarkable. Incidental note is made of diffuse fatty infiltration of the liver which is enlarged, measuring approximately 21.2 cm in length in the mid clavicular line. IMPRESSION: No hydronephrosis or nephrolithiasis. Mild to moderate enlargement of the liver with diffuse fatty infiltration. Electronically Signed by Mitch Quiñones MD 10/03/2018 06:35 P
--- NOTE | 2018-10-04 01:32 | ECGEPIP ---
Stationary ECG Study [facility] - ED Test Date: 2018-10-03 Pat Name: KALE MCGREGOR Department: Room: - Gender: F [employer]ities Tr[employer]: HOLDEN : 1990 Requested By: LANDON CROFT Order Number: [id number] Reading MD: Arash Lamar Measurements Intervals [place] Rate: 98 P: 56 NJ: 165 QRS: 43 QRSD: 83 T: 24 QT: 337 QTc: 431 Interpretive Statements SINUS RHYTHM SIMILAR TO 02/02/18 Electronically Signed On 10-04-2018 1:32:27 EDT by Arash Lamar
== END 2018-10-03 16:28 | disposition home or self-care (01) ==
LOC: M ED 12:16
DX: Z76.0 Encounter for issue of repeat prescription (principal); N39.0 Urinary tract infection, site not specified; R07.89 Other chest pain; K76.0 Fatty (change of) liver, not elsewhere classified; I10 Essential (primary) hypertension; F32.9 Major depressive disorder, single episode, unspecified; F41.9 Anxiety disorder, unspecified; E28.2 Polycystic ovarian syndrome; N80.9 Endometriosis, unspecified; F17.210 Nicotine dependence, cigarettes, uncomplicated; Z79.899 Other long term (current) drug therapy; Z79.84 Long term (current) use of oral hypoglycemic drugs
CPT/HCPCS: 76775; 80048; 81001; 81025; 82550; 82553; 85025; 87088; 87186; 93005; 96374; 99284; J2405

== ENCOUNTER → 2018-11-29 | Outpatient (CLI) | payer OTHER ==
[~2018-11-29] MED LIST changes: +CLON0.3T; +CLON0.3T PO; +MACR100C43 PO; +METF500T13; +RANI75TA13; +ROPI1TAB
[2018-11-29 17:37] LABS: HEMATOCRIT 38.6 % (36.0-47.0); HEMOGLOBIN 12.8 g/dl (12.0-15.5); MEAN CORPUSCULAR HEMOGLOBIN 29.4 pg (27.0-33.0); MEAN CORPUSCULAR HGB CONC 33.2 g/dl (32.0-36.5); MEAN CORPUSCULAR VOLUME 88.5 fl (80.0-96.0); PLATELET COUNT, AUTOMATED 299 10^3/uL (150-450); RED BLOOD COUNT 4.36 10^6/uL (4.00-5.40); WHITE BLOOD COUNT 8.8 10^3/uL (4.0-10.0)
[2018-11-29 18:13] LABS: ALBUMIN 3.6 GM/DL (3.2-5.2); ALT/SGPT 27 U/L (12-78); BILIRUBIN,TOTAL 0.4 MG/DL (0.2-1.0); BLOOD UREA NITROGEN 10 MG/DL (7-18); CALCIUM LEVEL 9.3 MG/DL (8.5-10.1); CARBON DIOXIDE LEVEL 29 MEQ/L (21-32); CHLORIDE LEVEL 100 MEQ/L (98-107); GLOMERULAR FILTRATION RATE > 60.0 (>60); GLUCOSE, FASTING 89 MG/DL (70-100); POTASSIUM SERUM 4.1 MEQ/L (3.5-5.1); SODIUM LEVEL 135 MEQ/L (136-145)
[2018-11-29 21:00] LABS: CHLAMYDIA DNA AMPLIFICATION NEGATIVE (NEGATIVE); GC DNA AMPLIFICATION NEGATIVE (NEGATIVE)
[2018-11-29 21:19] LABS: HCG, SERUM QUALITATIVE NEGATIVE (NEGATIVE)
[2018-11-30 10:24] LABS: HEPATITIS B SURFACE ANTIGEN NEGATIVE (NEGATIVE)
[2018-11-30 10:52] LABS: HIV 1&2 SCREEN CENTAUR NEGATIVE (NEGATIVE)
[2018-11-30 11:01] LABS: HEPATITIS C VIRUS ABY INDEX > 11.0 INDEX (<0.8)
== END ==
LOC: M WUC 14:49
PROVIDERS: ATTEND Family Medicine
DX: F11.20 Opioid dependence, uncomplicated (principal)

== ENCOUNTER 2019-01-24 12:06 | Inpatient (IN) | payer OTHER ==
[~2019-01-24] VITALS: Ht 170.2 cm; Wt 122.2 kg
[~2019-01-24 12:06] MED LIST changes: -METF500T13; -OMEP20CA3 PO; +OMEP20CA4 PO; -RANI75TA13; +RANI75TA13 PO; -ROPI1TAB; +ROPI1TAB PO
[2019-01-24] MEDS ORDERED: METH-872 PO (12:23)
[2019-01-24] MEDS ORDERED: NICOTINE 21MG/24HR 1 EA TRANSDERMAL TD ONE (13:00)
[2019-01-24 13:07] LABS: HEMATOCRIT 35.4 % (36.0-47.0); HEMOGLOBIN 11.8 g/dl (12.0-15.5); MEAN CORPUSCULAR HEMOGLOBIN 30.4 pg (27.0-33.0); MEAN CORPUSCULAR HGB CONC 33.3 g/dl (32.0-36.5); MEAN CORPUSCULAR VOLUME 91.2 fl (80.0-96.0); PLATELET COUNT, AUTOMATED 237 10^3/uL (150-450); RED BLOOD COUNT 3.88 10^6/uL (4.00-5.40); WHITE BLOOD COUNT 8.2 10^3/uL (4.0-10.0)
[2019-01-24 13:15] LABS: HCG, SERUM QUALITATIVE NEGATIVE (NEGATIVE)
[2019-01-24 13:25] LABS: AMPHETAMINES LEVEL URINE NEGATIVE (NEGATIVE); BARBITURATES URINE NEGATIVE (NEGATIVE); BENZODIAZEPINES URINE NEGATIVE (NEGATIVE); CANNABINOIDS URINE NEGATIVE (NEGATIVE); COCAINE METABOLITE URINE NEGATIVE (NEGATIVE); METHADONE URINE POSITIVE (NEGATIVE); OPIATES URINE NEGATIVE (NEGATIVE); PHENCYCLIDINE URINE NEGATIVE (NEGATIVE)
[2019-01-24] MEDS ORDERED: ACETAMINOPHEN 325 MG TAB PO ONE (13:30)
[2019-01-24 13:32] LABS: ACETAMINOPHEN LEVEL < 2.0 UG/ML (10.0-30.0); ALBUMIN 3.7 GM/DL (3.2-5.2); ALT/SGPT 32 U/L (12-78); BILIRUBIN,DIRECT < 0.1 MG/DL (0.0-0.2); BILIRUBIN,TOTAL 0.4 MG/DL (0.2-1.0); BLOOD UREA NITROGEN 10 MG/DL (7-18); CALCIUM LEVEL 9.2 MG/DL (8.5-10.1); CARBON DIOXIDE LEVEL 28 MEQ/L (21-32); CHLORIDE LEVEL 101 MEQ/L (98-107); ETHYL ALCOHOL (ETHANOL) < 0.003 % (0.000-0.010); GLOMERULAR FILTRATION RATE > 60.0 (>60); GLUCOSE, FASTING 145 MG/DL (70-100); POTASSIUM SERUM 4.2 MEQ/L (3.5-5.1); SALICYLATE LEVEL 3.2 MG/DL (5.0-30.0); SODIUM LEVEL 136 MEQ/L (136-145); TOTAL PROTEIN 7.6 GM/DL (6.4-8.2)
[2019-01-24] MEDS ORDERED: ESCI10TA2 PO (14:23)
[2019-01-24] MEDS ORDERED: CLON-412 PO (14:23)
[2019-01-24] MEDS ORDERED: QUET200T2 PO (14:23)
[2019-01-24] MEDS ORDERED: GABA800T4 PO (14:23)
[2019-01-24] MEDS ORDERED: ESCI20TA PO (14:23)
[2019-01-24] MEDS ORDERED: METH10CO PO (14:23)
[2019-01-24] MEDS ORDERED: CLON0.2T PO (14:23)
[2019-01-24] MEDS ORDERED: QUET5TAB PO (14:23)
[2019-01-24] MEDS ORDERED: IBUPROFEN 400 MG TAB PO PRN (15:00)
[2019-01-24] MEDS ORDERED: HALOPERIDOL 5 MG TAB PO PRN (15:00)
[2019-01-24] MEDS ORDERED: [UNRECOGNIZED DRUG - OTHER] TEETH (15:24)
[2019-01-24] MEDS: cloNIDine 0.1 MG TAB PO SCH ×2 (17:03→21:16)
[2019-01-24] MEDS: GABAPENTIN 400 MG CAP PO SCH ×2 (17:04→21:16)
[2019-01-24] MEDS: cloNIDine 0.2 MG TAB PO SCH ×2 (17:04→21:16)
[2019-01-24] MEDS: metFORMIN (GLUCOPHAGE) 500 MG TAB PO SCH (17:06)
[2019-01-24 17:29] VITALS: BP 155/79
[2019-01-24] MEDS ORDERED: ESCITALOPRAM OXALATE 10 MG TAB (LEXAPRO) PO SCH ×3 (21:00)
[2019-01-24] MEDS ORDERED: QUEtiapine FUMARATE 50 MG TAB PO SCH (21:00)
[2019-01-24] MEDS ORDERED: QUEtiapine FUMARATE 200 MG TAB PO SCH (21:00)
[2019-01-24] MEDS: PRAZOSIN 1 MG CAP PO SCH (21:16)
[2019-01-24] MEDS: ACETAMINOPHEN TAB 650MG DOSE (2X325MG) PO PRN (21:18)
[2019-01-24] MEDS: rOPINIRole 1MG TAB PO SCH (21:44)
[2019-01-25 06:44] VITALS: BP 143/87
[2019-01-25] MEDS: metFORMIN (GLUCOPHAGE) 500 MG TAB PO SCH ×2 (08:08→17:54)
[2019-01-25] MEDS: GABAPENTIN 400 MG CAP PO SCH ×3 (08:08→20:57)
[2019-01-25] MEDS: METHADONE 10 MG TAB (S0109) PO SCH (08:08)
[2019-01-25] MEDS: cloNIDine 0.1 MG TAB PO SCH ×2 (08:09→20:56)
[2019-01-25] MEDS: cloNIDine 0.2 MG TAB PO SCH ×3 (08:09→20:57)
[2019-01-25] MEDS: DOXYCYCLINE HYCLATE 100 MG TAB PO SCH ×2 (10:34→20:57)
--- NOTE | 2019-01-25 10:37 | HPEPDOC ---
General Date of Admission Jan 24, 2019 at 15:00 Date of Service: Jan 25, 2019 Attending Physician: JORDAN KIRBY MD Chief Complaint The patient is a 28-year-old female admitted with a reason for visit of Unspecified Depressive Disorder. History of Present Illness David Salgado is a 28-year-old female, with prior medical history significant for obesity, polysubstance abuse with crack, cocaine, marijuana, heroin, currently on methadone. Patient presents for admission on account of suicidal ideation. She was admitted to inpatient psychiatric unit for further evaluation and management. On assessment, she complains of toothache, painful genital lesions with concern for possible recurrence of vaginal warts. Patient also requesting EKG which she states was ordered by her physician at [facility]. She otherwise, denies abdominal pain, chest pain, shortness of breath, chills, weakness, fever, nausea, vomiting. Home Medications Scheduled Clonidine HCl (Clonidine HCl) 0.1 Mg Tablet, 0.1 MG PO TID, (Reported) TAKES A TOTAL OF 0.3MG TID Clonidine HCl (Clonidine HCl) 0.2 Mg Tablet, 0.2 MG PO TID, (Reported) TAKES A TOTAL OF 0.3MG TID Escitalopram Oxalate (Escitalopram Oxalate) 10 Mg Tablet, 10 MG PO QHS, (Reported) TAKE WITH 20MG FOR A TOTAL OF 30MG QHS Escitalopram Oxalate (Escitalopram Oxalate) 20 Mg Tablet, 20 MG PO QHS, (Reported) TAKE WITH 10MG FOR A TOTAL OF 30MG QHS Gabapentin (Gabapentin) 800 Mg Tablet, 800 MG PO TID, (Reported) Metformin HCl (Metformin HCl) 500 Mg Tablet, 500 MG PO BID, (Reported) Methadone HCl (Methadone HCl) 10 Mg/1 Ml Oral.conc, 110 MG PO DAILY, (Reported) Prazosin Hcl (Prazosin HCl) 5 Mg Cap, 10 MG PO QHS, (Reported) Quetiapine Fumarate (Quetiapine Fumarate) 200 Mg Tablet, 200 MG PO QHS, (Reported) TAKE WITH 50MG TABLET FOR A TOTAL OF 250MG Quetiapine Fumarate (Quetiapine Fumarate) 50 Mg Tablet, 50 MG PO QHS, (Reported) TAKE WITH 200MG TABLET FOR A TOTAL OF 250MG Ranitidine HCl (Ranitidine HCl) 75 Mg Tablet, 1 TAB PO BID, (Reported) Ropinirole HCl (Ropinirole HCl) 1 Mg Tablet, 1 MG PO QHS, (Reported) Scheduled PRN Benzocaine (Intense Toothache Pain Relief) 9.4 Gm Gel..gram., 1 DOSE TEETH Q4H PRN for PAIN, (Reported) Allergies Coded Allergies: No Known Allergies (Unverified , 04/08/17) Past Medical History Medical History Obesity GERD PCO S Endometriosis Polysubstance abuse, (cocaine, THC heroine) Anxiety Nicotine dependence Restless leg syndrome Insomnia Depression Surgical History Denies surgical history Family History Father: Skin cancer, polycythemia vera Mother: Hypertension Social History Smokes one pack per day, denies alcohol use, has been off, polysubstance abuse for 193 days now A-FIB/CHADSVASC A-FIB History Current/History of A-Fib/PAF?: No Current PO Anticoag Therapy: No Review of Systems Other systems A pertinent 10 point review of systems is completed, negative except as stated in the history of present illness Physical Examination Other physical findings GENERAL: Obese, NAD SKIN : Warm, dry intact HEENT: Atraumatic, normocephalic, moist mucous membrane CARDIOVASCULAR: Regular rate and rhythm, S1S2, no JVD, no edema, distal pulses + palpable RESP: CTAB, no accessory muscle use noted ABDOMEN: BS+ non distended non tender GENITAL: furuncular lesions present to shaved perineal area, discrete to left labia majora at 2 o'clock and two to 10 o'clock. with erythema, without bleeding or dranage MS: no joint deformities NEURO: Alert and oriented x 3, CN2-12 grossly intact PSYCH: no anxiety or agitation, appropriate mood and affect. Vital Signs Vital Signs Date Time Temp Pulse Resp B/P (MAP) Pulse Ox O2 Delivery O2 Flow Rate FiO2 01/25/19 08:22 Room Air 01/25/19 08:09 143/87 01/25/19 06:44 98.6 86 18 01/24/19 17:29 100 Laboratory Data Labs 24H Laboratory Tests 2 01/24/19 12:42: Nucleated Red Blood Cells % (auto) 0.0, Anion Gap 7L, Glomerular Filtration Rate > 60.0, Calcium Level 9.2, Aspartate Amino Transf (AST/SGOT) 29, Alanine Aminotransferase (ALT/SGPT) 32, Alkaline Phosphatase 72, Total Bilirubin 0.4, Direct Bilirubin < 0.1, Total Protein 7.6, Albumin 3.7, Albumin/Globulin Ratio 0.95L, Thyroid Stimulating Hormone (TSH) 3.450, Human Chorionic Gonadotropin, Qual NEGATIVE, Salicylates Level 3.2L, Urine Amphetamines Screen NEGATIVE, Urine Benzodiazepines Screen NEGATIVE, Urine Opiates Screen NEGATIVE, Urine Methadone Screen POSITIVEH, Acetaminophen Level < 2.0L, Urine Barbiturates Screen NEGATIVE, Urine Phencyclidine Screen NEGATIVE, Urine Cocaine Metabolite Screen NEGATIVE, Urine Cannabinoids Screen NEGATIVE, Ethyl Alcohol Level < 0.003 CBC/BMP Laboratory Tests 01/24/19 12:42 Red Blood Count 3.88 L, Mean Corpuscular Volume 91.2, Mean Corpuscular Hemoglobin 30.4, Mean Corpuscular Hemoglobin Concent 33.3, Red Cell Distribution Width 13.5 Assessment/Plan Vaginal forunculitis -Patient has been instructed to stop shaving perineal area -Start on doxycycline and monitor tolerance and response therapy Gingivitis -We'll need to be referred to othodontist at discharge for further evaluation -Antibiotic therapy with doxycycline -Continue ibuprofen for pain management Methadone use -12-lead EKG to monitor QT -Continue dosing by primary team Morbid obesity -BMI 42.9 -Patient has been counseled Suicidal ideation -Evaluation and management per primary team Plan / VTE VTE Prophylaxis Ordered?: No VTE Exclusion Mechanical Proph: Low Risk for VTE AMY CONTRERASP Jan 25, 2019 10:37
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
[2019-01-25] MEDS: buPROPion **XL** TABLET 150MG (WELLBUTRIN XL) PO SCH (16:01)
[2019-01-25] MEDS: BENZOCAINE 10% 9GM TUBE (ANBESOL) TOP PRN (16:06)
[2019-01-25] MEDS: ACETAMINOPHEN TAB 650MG DOSE (2X325MG) PO PRN (17:56)
[2019-01-25 18:00] VITALS: BP_SYST 105; BP_SYST 113; BP_DIAS 62; BP_DIAS 75
[2019-01-25] MEDS: rOPINIRole 1MG TAB PO SCH (20:54)
[2019-01-25] MEDS: PRAZOSIN 1 MG CAP PO SCH (20:54)
[2019-01-25] MEDS: QUEtiapine FUMARATE 200 MG TAB PO SCH (20:56)
[2019-01-25] MEDS: ESCITALOPRAM OXALATE 10 MG TAB (LEXAPRO) PO SCH (20:56)
[2019-01-26 06:36] VITALS: BP 117/73
[2019-01-26] MEDS: buPROPion **XL** TABLET 150MG (WELLBUTRIN XL) PO SCH (08:38)
[2019-01-26] MEDS: GABAPENTIN 400 MG CAP PO SCH ×3 (08:39→21:01)
[2019-01-26] MEDS: DOXYCYCLINE HYCLATE 100 MG TAB PO SCH ×2 (08:39→21:01)
[2019-01-26] MEDS: cloNIDine 0.1 MG TAB PO SCH ×3 (08:40→21:01)
[2019-01-26] MEDS: cloNIDine 0.2 MG TAB PO SCH ×3 (08:40→21:01)
[2019-01-26] MEDS: METHADONE 10 MG TAB (S0109) PO SCH (08:41)
[2019-01-26] MEDS: metFORMIN (GLUCOPHAGE) 500 MG TAB PO SCH ×2 (08:41→17:57)
--- NOTE | 2019-01-26 09:53 | IPNPDOC ---
Text Note Date of Service The patient was seen on 01/26/19. NOTE David Salgado is a 28-year-old female, with prior medical history significant for obesity, polysubstance abuse with crack, cocaine, marijuana, heroin, currently on methadone. Subjective: No improvement in symptoms today on follow up. She reports no worsening either. denies chills, fever, chest pain, SOB Objective GENERAL: Obese, NAD SKIN : Warm, dry intact HEENT: Atraumatic, normocephalic, moist mucous membrane CARDIOVASCULAR: Regular rate and rhythm, S1S2, no JVD, no edema, distal pulses + palpable RESP: CTAB, no accessory muscle use noted ABDOMEN: BS+ non distended non tender GENITAL: furuncular lesions present to shaved perineal area, discrete to left labia majora at 2 o'clock and two to 10 o'clock. with erythema, without bleeding or dranage MS: no joint deformities NEURO: Alert and oriented x 3, CN2-12 grossly intact PSYCH: no anxiety or agitation, appropriate mood and affect. Assessment/Plan Vaginal forunculitis -Patient has been instructed to stop shaving perineal area -Continue doxycycline -consult MANAGER DIESEL for more input. Gingivitis -Will need to be referral to othodontist at discharge for further evaluation -continue doxycycline -Continue ibuprofen for pain management Methadone use -12-lead EKG was ordered to monitor QT -Continue dosing by primary team Morbid obesity -BMI 42.9 -Patient has been counseled Suicidal ideation -Evaluation and management per primary team VS,Fishbone, I+O VS, Fishbone, I+O Vital Signs Date Time Temp Pulse Resp B/P (MAP) Pulse Ox O2 Delivery O2 Flow Rate FiO2 01/26/19 08:40 114/62 01/26/19 06:36 99.2 98 18 01/25/19 08:22 Room Air 01/24/19 17:29 100 AMY CONTRERAS Jan 26, 2019 09:53
[2019-01-26] MEDS: ACETAMINOPHEN TAB 650MG DOSE (2X325MG) PO PRN (12:58)
[2019-01-26] MEDS: BENZOCAINE 10% 9GM TUBE (ANBESOL) TOP PRN (13:02)
[2019-01-26 18:00] VITALS: BP 136/83
--- NOTE | 2019-01-26 20:51 | MHIPNPDOC ---
[facility] Progress Note Progress Note Date of Service: 01/26/2019 History of Present Illness The patient, a 28-year-old woman, presented to [facility] complaining of increased depression with suicidal thoughts, low mood, social isolation, and difficulty attending her NA meeting. She reportedly lives in DSS housing that is outside of town with no transportation and thus is not currently working or attending groups regularly. She reports that she has difficulty with the social isolation and that she has not been able to be in contact with her adult live in caregiver and that her depression has become more severe. She reports being abstinent from heroin use for the last 18 months on maintenance methadone. She reports that this is unusual for her, as she usually does not have depressive symptoms when she is not in active addiction. She reports having additionally excessive worries and difficulties with traumatic nightmares reoccurring. Interval History The patient has met with today where she describes that she is doing well with the Wellbutrin change. She notes that she finds the socialization of the unit quite helpful, as she notes that she has struggled with sobriety and isolation. Nursing have noticed no behavioral problems and she generally is amenable on the unit and attempts really fairly regularly. Review Of Systems Denies any side effects from her Wellbutrin. No palpitations, tremors or other discomfort noted. Reports improving low mood, fatigue, and hopelessness. Psychotherapy Explored the patient's previous history of trauma and her experiential acceptance of various complex parts of her early upbringing. Vital Signs Reviewed. Mental Status Examination General: Well dressed with good hygiene Speech: Spontaneous and fluid Thought processes: Linear and logical MSK: Smooth and coordinated gait, no signs of tremors or involuntary orofacial movements Thought content: Future orientated Abstract reasoning, and computation: Intact Description of associations: Intact Description of abnormal or psychotic thoughts: Denies any suicidal or homicidal ideation. Denies any auditory or visual hallucinations. Does not appear to be responding to internal stimuli. Does not appear to be endorsing any bizarre or paranoid ideation. Judgment: fair Insight: fair Orientation: Alert and orientated 3 Cognition: Grossly normal Recent and remote memory: Intact Attention span and concentration: Intact Fund of knowledge: Adequate Mood: "okay" Affect: Euthymic with a full range Diagnoses PTSD, chronic. Unspecified depressive disorder. Rule out substance related versus adjustment versus elaboration of PTSD. Tobacco use disorder, mild. Opioid use disorder, severe, on methadone maintenance. Cocaine use disorder, unspecified. Stimulant use disorder, unspecified. Assessment and Plan The patient appears to be making good progress on the Wellbutrin change. We'll continue medications as is, for now with no changes with further observation. We'll continue to titrate down Lexapro, as patient tolerates medication changes. Disposition Patient need a further impatient admission in order to stabilize her depressive symptoms and plan for more effective discharge. Time Spent 40 minutes [id number]. Vital Signs Vital Signs Date Time Temp Pulse Resp B/P (MAP) Pulse Ox O2 Delivery O2 Flow Rate FiO2 01/26/19 18:00 99.4 78 18 136/83 (100) 01/25/19 08:22 Room Air 01/24/19 17:29 100 Current Medications Current Medications Medications (Trade) Dose Ordered Sig/Moisés Route PRN Reason Start Time Stop Time Status Last Admin Dose Admin Acetaminophen (Tylenol Tab) 650 mg Q6HP PRN PO HEADACHE or DISCOMFORT 01/24/19 15:00 01/26/19 12:58 Benzocaine (Anbesol Gel) 1 dose Q4HP PRN TOP TOOTH PAIN 01/24/19 21:45 01/26/19 13:02 Bupropion HCl (Wellbutrin Xl) 150 mg DAILY PO 01/25/19 09:00 01/26/19 08:38 Clonidine HCl (Catapres) 0.1 mg TID PO 01/24/19 16:00 01/25/19 15:30 DC 01/25/19 08:09 Clonidine HCl (Catapres) 0.1 mg TID PO 01/25/19 21:00 01/26/19 16:10 Clonidine HCl (Catapres) 0.2 mg TID PO 01/24/19 16:00 01/26/19 16:10 Doxycycline Hyclate (Vibramycin) 100 mg BID PO 01/25/19 10:00 02/04/19 09:59 01/26/19 08:39 Escitalopram Oxalate (Lexapro) 10 mg QHS PO 01/24/19 21:00 01/24/19 21:00 DC Escitalopram Oxalate (Lexapro) 15 mg QHS PO 01/25/19 21:00 01/25/19 20:56 Escitalopram Oxalate (Lexapro) 20 mg QHS PO 01/24/19 21:00 UNV Escitalopram Oxalate (Lexapro) 30 mg QHS PO 01/24/19 21:00 01/25/19 15:30 DC 01/24/19 21:17 Gabapentin (Neurontin) 800 mg TID PO 01/24/19 16:00 01/26/19 16:09 Haloperidol (Haldol) 5 mg Q6HP PRN PO ANXIETY/AGITATION 01/24/19 15:00 Home Med (Med Rec Complete!) ASDIRECTED XX 01/24/19 14:45 01/24/19 14:45 DC Ibuprofen (Advil) 400 mg Q6HP PRN PO PAIN 01/24/19 15:00 Metformin HCl (Glucophage) 500 mg BID@0800,1800 PO 01/24/19 18:00 01/26/19 17:57 Methadone HCl (Dolophine) 110 mg DAILY PO 01/25/19 09:00 01/26/19 08:41 Prazosin HCl (Minipress) 10 mg QHS PO 01/24/19 21:00 01/25/19 20:54 Quetiapine Fumarate (SEROquel) 50 mg QHS PO 01/24/19 21:00 01/25/19 15:30 DC 01/24/19 21:17 Quetiapine Fumarate (SEROquel) 200 mg QHS PO 01/24/19 21:00 01/25/19 15:30 DC 01/24/19 21:17 Quetiapine Fumarate (SEROquel) 200 mg QHS PO 01/25/19 21:00 01/25/19 20:56 Ropinirole HCl (Requip) 1 mg QHS PO 01/24/19 21:00 01/25/19 20:54 Allergies Coded Allergies: No Known Allergies (Unverified , 04/08/17) NEYMAR FU DO Jan 26, 2019 20:51
[2019-01-26] MEDS: rOPINIRole 1MG TAB PO SCH (21:00)
[2019-01-26] MEDS: QUEtiapine FUMARATE 200 MG TAB PO SCH (21:01)
[2019-01-26] MEDS: PRAZOSIN 1 MG CAP PO SCH (21:02)
[2019-01-26] MEDS: ESCITALOPRAM OXALATE 10 MG TAB (LEXAPRO) PO SCH (21:03)
[2019-01-27 06:06] VITALS: BP 123/78
[2019-01-27] MEDS: DOXYCYCLINE HYCLATE 100 MG TAB PO SCH ×2 (08:20→20:42)
[2019-01-27] MEDS: metFORMIN (GLUCOPHAGE) 500 MG TAB PO SCH ×2 (08:20→18:16)
[2019-01-27] MEDS: GABAPENTIN 400 MG CAP PO SCH ×3 (08:20→20:42)
[2019-01-27] MEDS: buPROPion **XL** TABLET 150MG (WELLBUTRIN XL) PO SCH (08:20)
[2019-01-27] MEDS: METHADONE 10 MG TAB (S0109) PO SCH (08:20)
[2019-01-27] MEDS: cloNIDine 0.2 MG TAB PO SCH ×3 (08:21→20:43)
[2019-01-27] MEDS: cloNIDine 0.1 MG TAB PO SCH ×3 (08:22→20:42)
[2019-01-27] MEDS: NICOTINE 21MG/24HR 1 EA TRANSDERMAL TD SCH (08:47)
--- NOTE | 2019-01-27 09:29 | IPNPDOC ---
Text Note Date of Service The patient was seen on 01/27/19. NOTE David Salgado is a 28-year-old female, with prior medical history significant for obesity, polysubstance abuse with crack, cocaine, marijuana, heroin, currently on methadone. Subjective: Complains of right and left eye pain and swelling. Had a stye to right eye lid, which resolved and now recurring. Objective GENERAL: Obese, NAD SKIN : Warm, dry intact HEENT: Atraumatic, normocephalic, erythema to right eyelid and left blepharal fissure, moist mucous membrane CARDIOVASCULAR: Regular rate and rhythm, S1S2, no JVD, no edema, distal pulses + palpable RESP: CTAB, no accessory muscle use noted ABDOMEN: BS+ non distended non tender MS: no joint deformities NEURO: Alert and oriented x 3, CN2-12 grossly intact PSYCH: no anxiety or agitation, appropriate mood and affect. Assessment/Plan Blepharitis -Good eye hygeine -already on antibiotic therapy for treatment of genital lesions and oral gingivitis Vaginal forunculitis -Patient has been instructed to stop shaving perineal area -Continue doxycycline -INVENTORY CONTROL ASSOCIATE was consulted, follow recommendations Gingivitis -Will need to be referral to chief medical physicist at discharge for further evaluation -continue doxycycline -Continue ibuprofen for pain management Methadone use -12-lead EKG was ordered to monitor QT -Continue dosing by primary team Morbid obesity -BMI 42.9 -Patient has been counseled Suicidal ideation -Evaluation and management per primary team VS,Fishbone, I+O VS, Fishbone, I+O Vital Signs Date Time Temp Pulse Resp B/P (MAP) Pulse Ox O2 Delivery O2 Flow Rate FiO2 01/27/19 08:21 118/72 01/27/19 06:06 98.9 74 16 01/25/19 08:22 Room Air 01/24/19 17:29 100 AMY CONTRERAS Jan 27, 2019 09:29
[2019-01-27] MEDS ORDERED: raNITIdine SYRUP 150 MG/10 ML UDC PO ONE (10:49)
--- NOTE | 2019-01-27 14:18 | MHIPNPDOC ---
[facility] [place] Progress Note Progress Note Date of Service: 01/27/2019 History of Present Illness The patient, a 28-year-old woman, presented to [facility] complaining of increased depression with suicidal thoughts, low mood, social isolation, and difficulty attending her NA meeting. She reportedly lives in DSS housing that is outside of town with no transportation and thus is not currently working or attending groups regularly. She reports that she has difficulty with the social isolation and that she has not been able to be in contact with her insurance healthcare representative and that her depression has become more severe. She reports being abstinent from heroin use for the last 18 months on maintenance methadone. She reports that this is unusual for her, as she usually does not have depressive symptoms when she is not in active addiction. She reports having additionally excessive worries and difficulties with traumatic nightmares reoccurring. Interval History The patient is met with today. She describes that she wished to have an increase in her methadone. After great discussion and education, the patient acquiesced. She describes that she is coping better with her depression and notes that she has had significant trauma in her life. She has been attending groups and is becoming more reflective of her current situation. No major behavioral outbursts. She does report wanting to have privileges for her mom to come in earlier, as she reports it's difficult for her to attend during normal visiting hours. Review Of Systems Denies any current side effects from her medications. She does note feeling "some insomnia," but notes the previous evening she had been awoken by one of the safety aides that was checking on her. Psychotherapy None on this visit. Vital Signs Reviewed. Mental Status Examination General: Well dressed with good hygiene Speech: Spontaneous and fluid Thought processes: Linear and logical MSK: Smooth and coordinated gait, no signs of tremors or involuntary orofacial m ovements Thought content: Future orientated Abstract reasoning, and computation: Intact Description of associations: Intact Description of abnormal or psychotic thoughts: Denies any suicidal or homicidal ideation. Denies any auditory or visual hallucinations. Does not appear to be responding to internal stimuli. Does not appear to be endorsing any bizarre or paranoid ideation. Judgment: fair Insight: fair Orientation: Alert and orientated 3 Cognition: Grossly normal Recent and remote memory: Intact Attention span and concentration: Intact Fund of knowledge: Adequate Mood: "okay" Affect: Euthymic with a full range Diagnoses PTSD, chronic. Unspecified depressive disorder. Rule out substance related versus adjustment versus elaboration of PTSD. Tobacco use disorder, mild. Opioid use disorder, severe, on methadone maintenance. Cocaine use disorder, unspecified. Stimulant use disorder, unspecified. Assessment and Plan The patient appears to be doing relatively well on the Wellbutrin combo. Will continue at this time and discontinue Lexapro. Patient will likely be discharged on Wednesday. [id number] will need to be conducted, as insurance wishes to have review. Disposition Likely discharge on Wednesday. Time Spent 30 minutes [id number] with greater than 50% of the time spent on counseling/coordination of care. Wednesday Vital Signs Vital Signs Date Time Temp Pulse Resp B/P (MAP) Pulse Ox O2 Delivery O2 Flow Rate FiO2 01/27/19 08:21 118/72 01/27/19 06:06 98.9 74 16 01/25/19 08:22 Room Air 01/24/19 17:29 100 Laboratory Data 24H Labs Laboratory Tests 2 01/27/19 11:43: Bedside Glucose (Misc Panel) 118H Current Medications Current Medications Medications (Trade) Dose Ordered Sig/Moisés Route PRN Reason Start Time Stop Time Status Last Admin Dose Admin Acetaminophen (Tylenol Tab) 650 mg Q6HP PRN PO HEADACHE or DISCOMFORT 01/24/19 15:00 01/26/19 12:58 Benzocaine (Anbesol Gel) 1 dose Q4HP PRN TOP TOOTH PAIN 01/24/19 21:45 01/26/19 13:02 Bupropion HCl (Wellbutrin Xl) 150 mg DAILY PO 01/25/19 09:00 01/27/19 08:20 Clonidine HCl (Catapres) 0.1 mg TID PO 01/24/19 16:00 01/25/19 15:30 DC 01/25/19 08:09 Clonidine HCl (Catapres) 0.1 mg TID PO 01/25/19 21:00 01/27/19 08:22 Clonidine HCl (Catapres) 0.2 mg TID PO 01/24/19 16:00 01/27/19 08:21 Doxycycline Hyclate (Vibramycin) 100 mg BID PO 01/25/19 10:00 02/04/19 09:59 01/27/19 08:20 Escitalopram Oxalate (Lexapro) 10 mg QHS PO 01/24/19 21:00 01/24/19 21:00 DC Escitalopram Oxalate (Lexapro) 15 mg QHS PO 01/25/19 21:00 01/26/19 21:03 Escitalopram Oxalate (Lexapro) 20 mg QHS PO 01/24/19 21:00 UNV Escitalopram Oxalate (Lexapro) 30 mg QHS PO 01/24/19 21:00 01/25/19 15:30 DC 01/24/19 21:17 Gabapentin (Neurontin) 800 mg TID PO 01/24/19 16:00 01/27/19 08:20 Haloperidol (Haldol) 5 mg Q6HP PRN PO ANXIETY/AGITATION 01/24/19 15:00 Home Med (Med Rec Complete!) ASDIRECTED XX 01/24/19 14:45 01/24/19 14:45 DC Ibuprofen (Advil) 400 mg Q6HP PRN PO PAIN 01/24/19 15:00 Metformin HCl (Glucophage) 500 mg BID@0800,1800 PO 01/24/19 18:00 01/27/19 08:20 Methadone HCl (Dolophine) 110 mg DAILY PO 01/25/19 09:00 01/27/19 08:20 Nicotine (Nicoderm Cq 21mg) 1 patch DAILY TD 01/27/19 09:00 01/27/19 08:47 Prazosin HCl (Minipress) 10 mg QHS PO 01/24/19 21:00 01/26/19 21:02 Quetiapine Fumarate (SEROquel) 50 mg QHS PO 01/24/19 21:00 01/25/19 15:30 DC 01/24/19 21:17 Quetiapine Fumarate (SEROquel) 200 mg QHS PO 01/24/19 21:00 01/25/19 15:30 DC 01/24/19 21:17 Quetiapine Fumarate (SEROquel) 200 mg QHS PO 01/25/19 21:00 01/26/19 21:01 Ranitidine HCl (ZANTAC Syrup) 75 mg BID PO 01/27/19 09:00 Ropinirole HCl (Requip) 1 mg QHS PO 01/24/19 21:00 01/26/19 21:00 Allergies Coded Allergies: No Known Allergies (Unverified , 04/08/17) NEYMAR FU DO Jan 27, 2019 14:18
[2019-01-27] MEDS: raNITIdine SYRUP 150 MG/10 ML UDC PO SCH ×2 (14:26→20:45)
[2019-01-27 18:06] VITALS: BP 120/77
[2019-01-27] MEDS: rOPINIRole 1MG TAB PO SCH (20:42)
[2019-01-27] MEDS: QUEtiapine FUMARATE 200 MG TAB PO SCH (20:42)
[2019-01-27] MEDS: PRAZOSIN 1 MG CAP PO SCH (20:43)
[2019-01-28 06:48] VITALS: BP 127/80
[2019-01-28] MEDS: metFORMIN (GLUCOPHAGE) 500 MG TAB PO SCH ×2 (08:28→17:08)
[2019-01-28] MEDS: cloNIDine 0.2 MG TAB PO SCH ×3 (08:28→21:34)
[2019-01-28] MEDS: buPROPion **XL** TABLET 150MG (WELLBUTRIN XL) PO SCH (08:28)
[2019-01-28] MEDS: DOXYCYCLINE HYCLATE 100 MG TAB PO SCH ×2 (08:29→21:33)
[2019-01-28] MEDS: cloNIDine 0.1 MG TAB PO SCH ×3 (08:29→21:33)
[2019-01-28] MEDS: GABAPENTIN 400 MG CAP PO SCH ×3 (08:29→21:33)
[2019-01-28] MEDS: NICOTINE 21MG/24HR 1 EA TRANSDERMAL TD SCH (08:30)
[2019-01-28] MEDS: raNITIdine SYRUP 150 MG/10 ML UDC PO SCH ×2 (08:31→21:00)
[2019-01-28] MEDS: METHADONE 10 MG TAB (S0109) PO SCH (08:33)
[2019-01-28] MEDS ORDERED: PILL CUTTER 1 EACH XX PRN (10:15)
[2019-01-28] MEDS: ONDANSETRON 4 MG ORAL DISINTEGRATING TAB (Q0162 PER 1MG) PO PRN ×2 (11:01→17:07)
--- NOTE | 2019-01-28 15:44 | ECGEPIP ---
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 HEART RATE WAS FASTER AT 98 BEATS PER MINUTE AND MI INTERVAL WAS NORMAL Electronically Signed on 01-28-2019 15:44:27 EDT by Clem Garcia
[2019-01-28 18:00] VITALS: BP 127/72
[2019-01-28] MEDS: QUEtiapine FUMARATE 200 MG TAB PO SCH (21:33)
[2019-01-28] MEDS: PRAZOSIN 1 MG CAP PO SCH (21:34)
[2019-01-28] MEDS: rOPINIRole 1MG TAB PO SCH (21:35)
[2019-01-29 06:50] VITALS: BP 101/52
[2019-01-29] MEDS: buPROPion **XL** TABLET 150MG (WELLBUTRIN XL) PO SCH (09:00)
[2019-01-29] MEDS: raNITIdine SYRUP 150 MG/10 ML UDC PO SCH ×2 (09:00→20:43)
[2019-01-29] MEDS: metFORMIN (GLUCOPHAGE) 500 MG TAB PO SCH ×2 (09:30→17:04)
[2019-01-29] MEDS: GABAPENTIN 400 MG CAP PO SCH ×3 (09:32→20:33)
[2019-01-29] MEDS: METHADONE 10 MG TAB (S0109) PO SCH (09:33)
[2019-01-29] MEDS: DOXYCYCLINE HYCLATE 100 MG TAB PO SCH ×2 (09:33→20:33)
[2019-01-29] MEDS: cloNIDine 0.1 MG TAB PO SCH ×3 (09:34→20:34)
[2019-01-29] MEDS: cloNIDine 0.2 MG TAB PO SCH ×3 (09:34→20:34)
[2019-01-29] MEDS: NICOTINE 21MG/24HR 1 EA TRANSDERMAL TD SCH (09:37)
--- NOTE | 2019-01-29 10:03 | MHIPN ---
DATE: 01/28/2019 VITAL SIGNS: Temperature 97.7, pulse 85, respirations 18, blood pressure 127/80. CURRENT MEDICATIONS: - Seroquel 200 mg at bedtime - methadone 100 mg daily - Wellbutrin XL 150 mg every a.m. - prazosin 10 mg at bedtime - gabapentin 800 mg three times a day HISTORY OF PRESENT ILLNESS: This is a 28-year-old, white female with history of depression, post traumatic stress disorder (PTSD) and polysubstance use. The chief complaint is that of depression. The patient had some nausea and vomiting earlier today. The patient has been started on as needed Zofran. She has had no further gastrointestinal symptoms. The patient is ambivalent about the Wellbutrin. She complains that it makes her anxious and restless. The patient is encouraged to continue it, but will discuss this issue with her psychiatrist on Wednesday. The patient continues to have bad dreams. She does have a history of PTSD and is on a high dose of prazosin. MENTAL STATUS EXAMINATION: The patient is alert, oriented and cooperative. Mood is moderately depressed. She denies being suicidal. She is not homicidal. No signs of psychosis. Insight and judgment are fair. No signs of cognitive deficits. No signs of impulsivity. DIAGNOSES: Depressive disorder unspecified. Post traumatic stress disorder. Opiate use disorder, on methadone maintenance. Cocaine use disorder. Stimulant use disorder. PLAN: Continue present management. The patient will discuss whether to continue the Wellbutrin with her psychiatrist on Wednesday.
[2019-01-29] MEDS: ONDANSETRON 4 MG ORAL DISINTEGRATING TAB (Q0162 PER 1MG) PO PRN (17:05)
[2019-01-29 18:37] VITALS: BP 144/91
[2019-01-29] MEDS: PRAZOSIN 1 MG CAP PO SCH (20:33)
[2019-01-29] MEDS: ACETAMINOPHEN TAB 650MG DOSE (2X325MG) PO PRN (20:33)
[2019-01-29] MEDS: QUEtiapine FUMARATE 200 MG TAB PO SCH (20:34)
[2019-01-29] MEDS: rOPINIRole 1MG TAB PO SCH (20:39)
[2019-01-30 06:34] VITALS: BP 133/84
[2019-01-30] MEDS ORDERED: DOXY100T PO (08:50)
[2019-01-30] MEDS: NICOTINE 21MG/24HR 1 EA TRANSDERMAL TD SCH (09:00)
[2019-01-30] MEDS ORDERED: ESCITALOPRAM OXALATE 5MG TABLET (LEXAPRO) PO SCH ×2 (09:00)
[2019-01-30] MEDS: buPROPion **XL** TABLET 150MG (WELLBUTRIN XL) PO SCH (09:00)
[2019-01-30] MEDS: raNITIdine SYRUP 150 MG/10 ML UDC PO SCH (09:00)
[2019-01-30] MEDS: metFORMIN (GLUCOPHAGE) 500 MG TAB PO SCH (09:09)
[2019-01-30 09:14] VITALS: BP 116/82
[2019-01-30] MEDS: cloNIDine 0.2 MG TAB PO SCH (09:14)
[2019-01-30] MEDS: METHADONE 10 MG TAB (S0109) PO SCH (09:14)
[2019-01-30] MEDS: GABAPENTIN 400 MG CAP PO SCH (09:15)
[2019-01-30] MEDS: cloNIDine 0.1 MG TAB PO SCH (09:15)
[2019-01-30] MEDS: DOXYCYCLINE HYCLATE 100 MG TAB PO SCH (09:15)
--- NOTE | 2019-01-30 09:40 | MHDSPDOC ---
[facility] Discharge Summary Discharge Summary DATE OF ADMISSION: Jan 24, 2019 at 15:00 DATE OF DISCHARGE: 01/30/19 Date of Service: 01/30/2019 Diagnoses PTSD, chronic. BPD Unspecified depressive disorder. Rule out substance related versus adjustment versus elaboration of PTSD. Tobacco use disorder, mild. Opioid use disorder, severe, on methadone maintenance. Cocaine use disorder, unspecified. Stimulant use disorder, unspecified. History of Present Illness The patient, a 28-year-old woman, presented to [facility] complaining of increased depression with suicidal thoughts, low mood, social isolation, and difficulty attending her NA meeting. She reportedly lives in DSS housing that is outside of town with no transportation and thus is not currently working or attending groups regularly. She reports that she has difficulty with the social isolation and that she has not been able to be in contact with her animal care technician and that her depression has become more severe. She reports being abstinent from heroin use for the last 18 months on maintenance methadone. She reports that this is unusual for her, as she usually does not have depressive symptoms when she is not in active addiction. She reports having additionally excessive worries and difficulties with traumatic nightmares reoccurring. Consultants Involved Hospitalist/PCP screening Patient was started on low-dose doxycycline for gingivitis. Treatment and Progress On The Unit The patient was admitted to the unit. Subsequently, medication titrations and changes were attempted with the titration off of Lexapro to Wellbutrin as the patient notably had positive results in the past. She was observed for several days and notably had redacted any suicidal ideation shortly after presenting. She did demonstrate behaviors consistent with borderline personality disorder. She did explore some for her trauma and at times did attempt to split with the treatment team on gaining more methadone on the unit. After significant discussion, it appeared that the patient had had difficulties with socializing due to her current placement. Her animal care technician brought on to the unit where they were able to coordinate to attempt to get her a closer apartment to the area where she would be able to engage with more NA meetings and treatment. The patient had made good progress on the unit. She noted over the weekend that she had had some increased anxiety on the Wellbutrin 150 mg daily that she was started on. She was subsequently restarted on Lexapro 15 mg to help titrate back up to her home dose of 30 mg of Lexapro on her discharge. She requested disch arge on the day of discharge and did not meet involuntary criteria as she was not demonstrating any suicidal or homicidal ideation as it was attending to her needs and thus, also declined a further voluntary admission. She was discharged in good magnolia. Prior to her leaving, she did have an argument with another patient. However, it appeared to be primarily an elaboration of borderline personality disorder with her being easily offended, but evolved to know more than the patient having a short spell of tearfulness that spontaneously resolved. Discharge Assessment 28-year-old woman with a significant history of trauma and borderline personality disorder as well as substance use presents with a depressive episode that is likely related to poor socialization secondary to social factors as she quickly resolves without any complex medication expense in the therapeutic milieu. Mental Status Examination General: Well dressed with good hygiene Speech: Spontaneous and fluid Thought processes: Linear and logical MSK: Smooth and coordinated gait, no signs of tremors or involuntary orofacial movements Thought content: Future orientated Abstract reasoning, and computation: Intact Description of associations: Intact Description of abnormal or psychotic thoughts: Denies any suicidal or homicidal ideation. Denies any auditory or visual hallucinations. Does not appear to be responding to internal stimuli. Does not appear to be endorsing any bizarre or paranoid ideation. Judgment: fair Insight: fair Orientation: Alert and orientated 3 Cognition: Grossly normal Recent and remote memory: Intact Attention span and concentration: Intact Fund of knowledge: Adequate Mood: "okay" Affect: Euthymic with a full range Follow Up The social work team worked during the predischarge meeting in order to evaluate for further issues of lethality address them fully before discharge. They worked on safety planning with the patient's family members in order to ensure that the patient will have a safe and effective discharge. Time Spent The amount of time spent in the coordination of care for this patient was approximately 30 minutes. Vital Signs/I&Os Vital Signs Date Time Temp Pulse Resp B/P (MAP) Pulse Ox O2 Delivery O2 Flow Rate FiO2 01/30/19 09:14 116/82 01/30/19 06:34 97.8 81 14 01/29/19 07:55 Room Air 01/24/19 17:29 100 Laboratory Data Labs 24H Laboratory Tests 2 01/29/19 17:02: Bedside Glucose (Misc Panel) 93 Medications Scheduled Clonidine HCl (Clonidine HCl) 0.3 Mg Tablet, 1 TAB PO TID for anxiety for 30 Days, #7 Doxycycline Hyclate (Doxycycline Hyclate) 100 Mg Tablet, 100 MG PO BID for infection for 10 Days, #20 Escitalopram Oxalate (Escitalopram Oxalate) 10 Mg Tablet, 10 MG PO QHS, (Reported) TAKE WITH 20MG FOR A TOTAL OF 30MG QHS Escitalopram Oxalate (Escitalopram Oxalate) 20 Mg Tablet, 20 MG PO QHS, (Reported) TAKE WITH 10MG FOR A TOTAL OF 30MG QHS Gabapentin (Gabapentin) 800 Mg Tablet, 800 MG PO TID, (Reported) Metformin HCl (Metformin HCl) 500 Mg Tablet, 500 MG PO BID, (Reported) Methadone HCl (Methadone HCl) 10 Mg/1 Ml Oral.conc, 110 MG PO DAILY, (Reported) Prazosin Hcl (Prazosin HCl) 5 Mg Cap, 10 MG PO QHS, (Reported) Quetiapine Fumarate (Quetiapine Fumarate) 200 Mg Tablet, 200 MG PO QHS, (Reported) TAKE WITH 50MG TABLET FOR A TOTAL OF 250MG Quetiapine Fumarate (Quetiapine Fumarate) 50 Mg Tablet, 50 MG PO QHS, (Reported) TAKE WITH 200MG TABLET FOR A TOTAL OF 250MG Ranitidine HCl (Ranitidine HCl) 75 Mg Tablet, 1 TAB PO BID, (Reported) Ropinirole HCl (Ropinirole HCl) 1 Mg Tablet, 1 MG PO QHS, (Reported) Scheduled PRN Benzocaine (Intense Toothache Pain Relief) 9.4 Gm Gel..gram., 1 DOSE TEETH Q4H PRN for PAIN, (Reported) Allergies Coded Allergies: No Known Allergies (Unverified , 04/08/17) NEYMAR FU DO Jan 30, 2019 09:40
[2019-01-30] MEDS ORDERED: CLON0.3T PO (10:42)
[2019-01-31] MEDS ORDERED: CLON0.3T PO (14:18)
== END 2019-01-30 14:00 | disposition home or self-care (01) | DRG 755 ==
LOC: M ED 12:06 → M ED INP 15:00 → M PSY 17:23
PROVIDERS: ADMIT Psychiatry & Neurology Addiction Medicine; ATTEND Psychiatry & Neurology Addiction Medicine
DX: F43.12 Post-traumatic stress disorder, chronic (principal); F11.20 Opioid dependence, uncomplicated; E66.01 Morbid (severe) obesity due to excess calories; Z68.41 Body mass index [BMI] 40.0-44.9, adult; F32.9 Major depressive disorder, single episode, unspecified; F17.210 Nicotine dependence, cigarettes, uncomplicated; F14.10 Cocaine abuse, uncomplicated; N80.9 Endometriosis, unspecified; K21.9 Gastro-esophageal reflux disease without esophagitis; G47.00 Insomnia, unspecified; E28.2 Polycystic ovarian syndrome; K05.10 Chronic gingivitis, plaque induced; G25.81 Restless legs syndrome; F15.10 Other stimulant abuse, uncomplicated; Z79.84 Long term (current) use of oral hypoglycemic drugs; Z79.899 Other long term (current) drug therapy; H01.005 Unspecified blepharitis left lower eyelid; H01.002 Unspecified blepharitis right lower eyelid

== ENCOUNTER → 2019-02-09 | Outpatient (REF) | payer OTHER ==
[~2019-02-09] MED LIST changes: +CLON-412 PO; +DOXY100T PO; +ESCI10TA2 PO; +GABA800T4 PO; +METH-872 PO; +QUET200T2 PO; +QUET5TAB PO; +[UNRECOGNIZED DRUG - OTHER] TEETH
[2019-02-09 18:04] LABS: BASO % 0.5 % (0.0-1.0); EOS # 0.3 10^3/uL (0.0-0.50); EOS % 4.4 % (0.0-3.0); HEMATOCRIT 35.6 % (36.0-47.0); HEMOGLOBIN 11.5 g/dl (12.0-15.5); LYMPH # 2.8 10^3/uL (1.5-6.5); LYMPH % 37.2 % (24.0-44.0); MEAN CORPUSCULAR HEMOGLOBIN 30.2 pg (27.0-33.0); MEAN CORPUSCULAR HGB CONC 32.3 g/dl (32.0-36.5); MEAN CORPUSCULAR VOLUME 93.4 fl (80.0-96.0); MONO # 0.6 10^3/uL (0.0-0.8); MONO % 7.4 % (0.0-5.0); NEUTROPHILS # 3.8 10^3/uL (1.8-7.7); NEUTROPHILS % 50.1 % (36.0-66.0); PLATELET COUNT, AUTOMATED 237 10^3/uL (150-450); RED BLOOD COUNT 3.81 10^6/uL (4.00-5.40); WHITE BLOOD COUNT 7.5 10^3/uL (4.0-10.0)
[2019-02-09 18:23] LABS: ALBUMIN 3.5 GM/DL (3.2-5.2); ALT/SGPT 42 U/L (12-78); BILIRUBIN,TOTAL 0.3 MG/DL (0.2-1.0); BLOOD UREA NITROGEN 6 MG/DL (7-18); CARBON DIOXIDE LEVEL 28 MEQ/L (21-32); CHLORIDE LEVEL 102 MEQ/L (98-107); CHOLESTEROL LEVEL 194 MG/DL (<200); CREATININE FOR GFR 0.76 MG/DL (0.55-1.30); GLOMERULAR FILTRATION RATE > 60.0 (>60); GLUCOSE, FASTING 139 MG/DL (70-100); HDL CHOLESTEROL 40 MG/DL (>40); NON-HDL-C 154 MG/DL; POTASSIUM SERUM 4.1 MEQ/L (3.5-5.1); SODIUM LEVEL 135 MEQ/L (136-145); TOTAL PROTEIN 7.4 GM/DL (6.4-8.2); TRIGLYCERIDES LEVEL 483 MG/DL (<150)
[2019-02-09 18:28] LABS: HEMOGLOBIN A1c 5.7 %
[2019-02-09 20:11] LABS: TOTAL 25(OH) VITAMIN D 18.5 NG/ML (30.0-100.0)
== END ==
LOC: M LAB REF 16:53
PROVIDERS: ATTEND Family Medicine
DX: Z13.228 Encounter for screening for other metabolic disorders (principal)

== ENCOUNTER 2020-04-04 16:13 | Emergency (ER) | payer OTHER ==
[~2020-04-04] VITALS: Ht 170.2 cm; Wt 80.7 kg
[~2020-04-04 16:13] MED LIST changes: +OMEP1CAP73 PO; -OMEP20CA4 PO; +QUET100T2 PO; -QUET1TAB8 PO; -RANI75TA13 PO; +RANI75TA39 PO; -ROPI1TAB PO; +ROPI1TAB3 PO
--- NOTE | 2020-04-04 17:53 | REPVR ---
PROCEDURE INFORMATION: Exam: US Left Non-Vascular Joint or Other Extremity Structure, Limited Upper Extremity Exam date and time: 04/04/2020 5:28 PM Age: 30 years old Clinical indication: Pain; Lower left forearm soft tissue swelling; Left; Additional info: Lue swelling; Evaluate for abscess TECHNIQUE: Imaging protocol: Left US joint or other nonvascular extremity structure or structures. Real-time ultrasound with image documentation. Limited study. Exam focused on the upper extremity in the region of clinical interest. COMPARISON: No relevant prior studies available. FINDINGS: Soft tissues: Superficial soft tissue fluid collection in the subcutaneous adipose measuring 3.1 x 2.0 x 0.9 cm, with irregular interdigitating margins, subtle surrounding color Doppler low level vascular flow. No extension subjacent to the underlying muscular fascia. No evidence of ectopic gas. No foreign body identified. IMPRESSION: Soft tissue fluid collection consistent with developing abscess. Mid differential diagnosis could include hematoma, adventitious bursitis. Electronically signed by: Nicholas Espinoza On 04/04/2020 17:53:42 PM
[2020-04-04 18:20] LABS: BASO # 0.1 10^3/uL (0.0-0.2); BASO % 0.4 % (0.0-1.0); EOS # 0.2 10^3/uL (0.0-0.5); EOS % 2.1 % (0.0-3.0); HEMATOCRIT 33.3 % (36.0-47.0); HEMOGLOBIN 10.9 g/dl (12.0-15.5); LYMPH # 2.3 10^3/uL (1.5-5.0); LYMPH % 20.2 % (24.0-44.0); MEAN CORPUSCULAR HEMOGLOBIN 30.1 pg (27.0-33.0); MEAN CORPUSCULAR HGB CONC 32.7 g/dl (32.0-36.5); MONO # 1.1 10^3/uL (0.0-0.8); MONO % 9.4 % (0.0-5.0); NEUTROPHILS # 7.5 10^3/uL (1.5-8.5); NEUTROPHILS % 67.5 % (36.0-66.0); PLATELET COUNT, AUTOMATED 284 10^3/uL (150-450); RED BLOOD COUNT 3.62 10^6/uL (4.00-5.40); WHITE BLOOD COUNT 11.2 10^3/uL (4.0-10.0)
[2020-04-04 18:52] LABS: ALBUMIN 3.9 GM/DL (3.2-5.2); ALT/SGPT 22 U/L (12-78); BILIRUBIN,TOTAL 0.5 MG/DL (0.2-1.0); BLOOD UREA NITROGEN 15 MG/DL (7-18); CALCIUM LEVEL 9.6 MG/DL (8.5-10.1); CARBON DIOXIDE LEVEL 26 MEQ/L (21-32); CHLORIDE LEVEL 105 MEQ/L (98-107); CREATININE FOR GFR 0.72 MG/DL (0.55-1.30); GLOMERULAR FILTRATION RATE > 60.0 (>60); GLUCOSE, FASTING 74 MG/DL (70-100); POTASSIUM SERUM 4.1 MEQ/L (3.5-5.1); SODIUM LEVEL 137 MEQ/L (136-145); TOTAL PROTEIN 8.2 GM/DL (6.4-8.2)
[2020-04-04] MEDS ORDERED: DALBAVANCIN 1,500 MG in D5W 250 ML IV ONE (19:00)
[2020-04-04] MEDS ORDERED: LIDOCAINE 2% W/EPINEPHRINE 20ML VIAL **PRES FREE INJ ONE (19:15)
[2020-04-04 19:38] VITALS: BP 114/64
--- NOTE | 2020-04-06 10:07 | ED PDOC ---
Post-Departure Follow-Up jose prieto faxed formal report of us of extrmity for fu Bernardo Horton MD Apr 06, 2020 10:07
== END 2020-04-04 20:06 | disposition home or self-care (01) ==
LOC: M ED 16:13
DX: L02.414 Cutaneous abscess of left upper limb (principal); L03.114 Cellulitis of left upper limb; I10 Essential (primary) hypertension; E28.2 Polycystic ovarian syndrome; F31.9 Bipolar disorder, unspecified; F16.10 Hallucinogen abuse, uncomplicated; F17.200 Nicotine dependence, unspecified, uncomplicated; Z79.84 Long term (current) use of oral hypoglycemic drugs; Z79.899 Other long term (current) drug therapy
CPT/HCPCS: 10060; 36415; 76882; 80053; 83605; 85025; 87040; 96361; 96374; 99283; J0875

== ENCOUNTER 2020-10-25 18:07 | Inpatient (IN) | payer OTHER ==
[~2020-10-25] VITALS: Ht 170.2 cm; Wt 59.4 kg
[~2020-10-25 18:07] MED LIST changes: +ESCI10TA16 PO; -ESCI10TA2 PO; -ESCI20TA PO; +ESCI20TA16 PO; +GABA-283 PO; -GABA-845 PO; -METH-872 PO; +METH10TA3 PO; +QUET50TA3 PO; -QUET5TAB PO
[2020-10-25] MEDS ORDERED: LEXA1TAB PO (18:16)
[2020-10-25] MEDS ORDERED: QUET100T2 PO (18:16)
[2020-10-25] MEDS ORDERED: LEXA1TAB2 PO (18:16)
[2020-10-25] MEDS ORDERED: GABA600T4 PO (18:16)
[2020-10-25] MEDS ORDERED: REQU1TAB14 PO (18:16)
[2020-10-25] MEDS ORDERED: cloNIDine 0.1MG TABLET PO ONE (18:50)
[2020-10-25] MEDS ORDERED: CLON0.3T PO (18:58)
[2020-10-25 19:27] LABS: HEMATOCRIT 33.2 % (36.0-47.0); HEMOGLOBIN 10.8 g/dl (12.0-15.5); MEAN CORPUSCULAR HEMOGLOBIN 28.5 pg (27.0-33.0); MEAN CORPUSCULAR HGB CONC 32.5 g/dl (32.0-36.5); MEAN CORPUSCULAR VOLUME 87.6 fl (80.0-96.0); PLATELET COUNT, AUTOMATED 335 10^3/uL (150-450); RED BLOOD COUNT 3.79 10^6/uL (4.00-5.40); WHITE BLOOD COUNT 9.6 10^3/uL (4.0-10.0)
[2020-10-25 19:43] LABS: HCG, SERUM QUALITATIVE NEGATIVE (NEGATIVE)
[2020-10-25 19:46] LABS: AMPHETAMINES LEVEL URINE NEGATIVE (NEGATIVE); BARBITURATES URINE NEGATIVE (NEGATIVE); BENZODIAZEPINES URINE NEGATIVE (NEGATIVE); CANNABINOIDS URINE NEGATIVE (NEGATIVE); COCAINE METABOLITE URINE NEGATIVE (NEGATIVE); METHADONE URINE POSITIVE (NEGATIVE); OPIATES URINE NEGATIVE (NEGATIVE); PHENCYCLIDINE URINE NEGATIVE (NEGATIVE)
[2020-10-25 19:53] LABS: ACETAMINOPHEN LEVEL < 2.0 UG/ML (10.0-30.0); ALBUMIN 3.3 GM/DL (3.2-5.2); ALT/SGPT 15 U/L (12-78); BILIRUBIN,DIRECT < 0.1 MG/DL (0.0-0.2); BILIRUBIN,TOTAL 0.3 MG/DL (0.2-1.0); BLOOD UREA NITROGEN 9 MG/DL (7-18); CALCIUM LEVEL 9.2 MG/DL (8.5-10.1); CARBON DIOXIDE LEVEL 30 MEQ/L (21-32); CHLORIDE LEVEL 108 MEQ/L (98-107); CREATININE FOR GFR 0.64 MG/DL (0.55-1.30); ETHYL ALCOHOL (ETHANOL) < 0.003 % (0.000-0.010); GLOMERULAR FILTRATION RATE > 60.0 (>60); GLUCOSE, FASTING 81 MG/DL (70-100); POTASSIUM SERUM 3.9 MEQ/L (3.5-5.1); SALICYLATE LEVEL < 1.7 MG/DL (5.0-30.0); SODIUM LEVEL 142 MEQ/L (136-145); THYROID STIMULATING HORMONE 0.253 uIU/ML (0.358-3.740); TOTAL PROTEIN 7.7 GM/DL (6.4-8.2)
[2020-10-25] MEDS: rOPINIRole 1MG TAB PO SCH (21:00)
[2020-10-25] MEDS ORDERED: MAALOX 30 ML SUSP *UDC PO PRN (21:10)
[2020-10-25] MEDS ORDERED: traZODone 50 MG TAB PO PRN (21:10)
[2020-10-25] MEDS ORDERED: MOM 30ML SUSPENSION UDC PO PRN (21:10)
[2020-10-25] MEDS: GABAPENTIN 300 MG CAP PO SCH (21:27)
[2020-10-25] MEDS: QUEtiapine FUMARATE 100 MG TAB PO SCH (21:27)
[2020-10-25] MEDS: QUEtiapine FUMARATE 50MG TAB PO SCH (21:28)
[2020-10-25 23:44] VITALS: BP 113/57
[2020-10-26] MEDS: cloNIDine 0.1MG TABLET PO SCH ×3 (08:06→20:00)
[2020-10-26] MEDS: GABAPENTIN 300 MG CAP PO SCH ×3 (08:06→19:59)
[2020-10-26] MEDS: ESCITALOPRAM OXALATE 10 MG TAB (LEXAPRO) PO SCH (08:06)
[2020-10-26] MEDS ORDERED: ESCITALOPRAM OXALATE 10 MG TAB (LEXAPRO) PO SCH (09:00)
--- NOTE | 2020-10-26 13:21 | MHHPEPDOC ---
General Date Of Admission: October 25, 2020 Legal Status: 9.39 Chief Complaint "[I'm very depressed and I need help]. History of Present Illness HISTORY OF THE PRESENT ILLNESS: Patient is a 30 -year-old , female, who [has a long history of polysubstance abuse and depression with the 1 previous admission in 1999. Patient states that she hasn't been receiving any outpatient treatment and not been taking any antidepressant. She states that lately she is feeling increasingly depressed with the poor sleep, anxious mood, feeling tired all the time and having no energy or motivation. She claims that she has not used any street drugs and that her opiate abuse is under control with the ongoing methadone maintenance and taking 175 mg a day]. She later changed her story and claims that she is been taking clonidine Seroquel. She denies any new stressors. Denies any clear precipitant and denies any legal issues and doesn't understand why she is feeling this way. For and Lexapro, but doesn't feel the medicine is helping very much... She is however, denying any suicidal plan thoughts or history of attempts Psychiatric Review of Systems Depression (2 or more weeks): depressed mood, anhedonia, insomnia/hypersomnia, decreased energy Janelle (4 or more days of): denies Psychosis: denies PTSD: denies Anxiety: gen/non-specific anxiety Past Psychiatric History Previous Psychiatric Diagnosis: [Depressive disorder and polysubstance abuse]. Previous Psychiatric Admissions: 1. Inpatient admission 2019 . Suicide Attempts: Denies any past attempt. Psychiatric Follow-up: [Receiving methadone maintenance]. Psychiatric medications: [Been taking Lexapro, Seroquel and clonidine]. Past Medical History Medical Problems AIR [employer]LL[employer] issues Head Injury: No Seizures: No Hospitalizations: No Family Medical/Psychiatric HX Medical Problems Noncontributory Psychiatric Disorders: No Addiction: No Suicide Attemps/Completions: No Addiction History cocaine, opioids, methamphetamines, heroin Social History Childhood: [Unremarkable]. Abuse/Trauma: None . Current Living Situation: [Lives alone]. Education: [High school education, receiving public assistance]. Employment: [, Unemployed]. Social Support: Has a mother with taking care of HER-2 children. Source of support . Legal: [Denies]. Marital: [, Single, never ]. Mental Status Examination General Appearance: well groomed, appears stated age Build: average, overweight Demeanor: average Eye Contact: average Activity: average Behavior: cooperative Speech: clear, spontaneous, normal volume Mood: depressed, anxious Affect: full, appropriate Thought Process: logical/linear Thought Content (Delusions): none reported Thought Content (Other): none reported, appears paranoid Thought Content (Aggressive): none reported Perception (Hallucinations): none reported Perception (Other): none reported Cognition (Impairment of): none reported Cognition(Intelligence Est.): average Oriented: Awake, Alert, Oriented times three Insight: fair Judgment: Fair Psychosis: Denies Diagnoses Depressive disorder NOS , Polysubstance abuse A-FIB/CHADSVASC A-FIB History Current/History of A-Fib/PAF?: No Current PO Anticoag Therapy: No Age/Risk Factor Scoring CHADSVASC: CHADSVASC Response (Comments) Value Gender Risk Factor Female 1 Hx of CHF No 0 Hx of HTN No 0 Hx of Stroke/TIA/or VTE No 0 Hx of Diabetes No 0 Hx of Vascular Disease No 0 Total 1 Treatment Treatment ordered: NONE Assessment Patient reports increasing depression but denies any active suicidal plan or intent and reports no clear precipitant Initial Treatment Plan 1. Patient was admitted on a [9.39] status. 2. Complete history was obtained. 3. With patients permission, family will be contacted and database will be expanded. 4. Patients medication regimen will be reviewed and changed accordingly. 5. Patient will be provided with protected environment. 6. Patient will be treated with individual, group, and milieu therapies. 7. Patient will receive supportive psych-education. 8. Discharge planning will commence immediately. 9. Outpatient follow-up treatment will be strongly recommended. 10. The initial treatment plan will focus initially on: * Depression. * Risk for suicide. ESTIMATED LENGTH OF STAY: [3] 5- DAYS. TIME SPENT COUNSELING AND COORDINATING INITIAL CARE: [45] minutes. Tobacco Cessation Screen If Patient is a Smoker She has been using nicotine by vaping, but doesn't feel she needs any nicotine replacement therapy N/A-No Antipsychotics Vital Signs Vital Signs Date Time Temp Pulse Resp B/P (MAP) Pulse Ox O2 Delivery O2 Flow Rate FiO2 10/26/20 08:06 131/86 10/25/20 23:44 97.8 88 16 100 Room Air Laboratory Data 24H Labs Laboratory Tests 2 10/25/20 18:32: Nucleated Red Blood Cells % (auto) 0.0, Anion Gap 4L, Glomerular Filtration Rate > 60.0, Calcium Level 9.2, Total Bilirubin 0.3, Direct Bilirubin < 0.1, Aspartate Amino Transf (AST/SGOT) 13, Alanine Aminotransferase (ALT/SGPT) 15, Alkaline Phosphatase 93, Total Protein 7.7, Albumin 3.3, Albumin/Globulin Ratio 0.8L, Thyroid Stimulating Hormone (TSH) 0.253L, Human Chorionic Gonadotropin, Qual NEGATIVE, Salicylates Level < 1.7L, Urine Opiates Screen NEGATIVE, Urine Methadone Screen POSITIVEH, Acetaminophen Level < 2.0L, Urine Barbiturates Screen NEGATIVE, Urine Phencyclidine Screen NEGATIVE, Urine Amphetamines Screen NEGATIVE, Urine Benzodiazepines Screen NEGATIVE, Urine Cocaine Metabolite Screen NEGATIVE, Urine Cannabinoids Screen NEGATIVE, Ethyl Alcohol Level < 0.003 CBC/BMP Laboratory Tests 10/25/20 18:32 Medications Scheduled Clonidine HCl (Clonidine HCl) 0.3 Mg Tablet, 0.3 MG PO TID, (Reported) Escitalopram Oxalate (Lexapro) 10 Mg Tablet, 10 MG PO DAILY, (Reported) takes with 20mg to equal 30mg Escitalopram Oxalate (Lexapro) 20 Mg Tablet, 20 MG PO DAILY, (Reported) takes with 10 mg to equal 30mg Gabapentin (Gabapentin) 600 Mg Tablet, 600 MG PO TID, (Reported) Methadone HCl (Methadone HCl) 10 Mg/1 Ml Oral.conc, 175 MG PO QAM, (Reported) Quetiapine Fumarate (Quetiapine Fumarate) 50 Mg Tablet, 50 MG PO QHS, (Reported) TAKE WITH 100MG TABLET FOR A TOTAL OF 150MG Quetiapine Fumarate (Quetiapine Fumarate) 100 Mg Tablet, 100 MG PO QHS, (Reporte d) takes with 50mg to equal 150mg Ropinirole HCl (Ropinirole HCl) 1 Mg Tablet, 1 MG PO QHS, (Reported) Allergies Coded Allergies: No Known Allergies (Unverified , 04/08/17) ALFRED DOWNS M.D. October 26, 2020 13:20
[2020-10-26] MEDS: NICOTINE 21MG/24HR 1 EA TRANSDERMAL TD SCH (15:16)
[2020-10-26 16:39] VITALS: BP 128/80
[2020-10-26] MEDS: MULTIVITAMINS/MINERALS THERAP 1 TAB PO SCH (18:47)
[2020-10-26] MEDS: ONDANSETRON 4 MG TAB PO PRN (18:51)
[2020-10-26] MEDS ORDERED: LORazepam 2 MG TAB PO ONE (19:00)
--- NOTE | 2020-10-26 19:20 | CR.PDOC ---
General Date of Consultation: October 26, 2020 Referring Provider: ALFRED DOWNS M.D. Attending Physician: BERNICE COREAS MD Consultation REASON FOR CONSULTATION/CHIEF COMPLAINT: [New [facility] admit]. HISTORY OF PRESENT ILLNESS: [this is a 30 y/o female with a pmh of gerd, pcos, htn, hld, polysubstance abuse, obesity s/p gastric bypass, depression and anxiety who was admitted to the [facility] for depressive syndrome and substance abuse. Patient states that at this time she is extremely anxious and feels ill and states that it is because she has not received any methadone since the morning of 10/25. Patient believes she is in withdrawal from the methadone and complains of hot/cold flashes, nausea, vomiting, anxiety and restlessness. Patient states that her at home dose of methadone is 175mg/daily. Patients urine drug tox was positive for methadone. Patient also admits to having used IV yasmeen on a somewhat consistent basis until yesterday morning as well. Patient at this time is denying chest pain, sob, abdominal pain, constipation, diarrhea, coffee ground emesis, dysuria, rash.]. ALLERGIES: Please see below. HOME MEDICATIONS: Please see below. PAST MEDICAL HISTORY: 1. [See HPI PAST SURGICAL HISTORY: 1. [Gastric bypass] FAMILY HISTORY: Reviewed - none pertinent SOCIAL HISTORY: Tobacco use:[2 ppd for "a long time"] ETOH: [Denies] Illicit drug use: [Hx of polysubstance abuse, most recently IV yasmeen] REVIEW OF SYSTEMS: CONSTITUTIONAL: [Admits to hot/cold flashes]. HEENT: [Denies URI sx]. CARDIOVASCULAR: [Denies chest pain, palpitations]. RESPIRATORY: [Denies sob]. GENITOURINARY: [Denies dysuria]. MUSCULOSKELETAL: [Denies back pain]. GASTROINTESTINAL: [Admits to n/v. Denies abd pain, diarrhea, constipation.]. SKIN: [Denies rash]. NEUROLOGICAL: [Denies paresthesia]. PSYCHIATRIC: [Admits to depression, anxiety]. ENDOCRINE: [Denies hx of DM]. HEMATOLOGIC/LYMPHATIC: [Denies easy bruising]. PHYSICAL EXAMINATION: VITAL SIGNS: Please see below. GENERAL APPEARANCE: [This is an anxious and restless appearing 30 y/o. Her appearance is somewhat disheveled.]. HEENT: [No mass or lesion. EOMI. No scleral icterus. Nares patent. Poor dentition. Oral mucosa moist without erythema.]. RESPIRATORY: [Good airflow auscultated b/l. No wheezing, rales, rhonchi]. CARDIOVASCULAR: [Regular rate, rhythm. No murmurs, rubs, gallops]. ABDOMEN: [Soft, mildly tender throughout.]. EXTREMITIES: [No peripheral edema. No skin changes. Pulses intact.]. NEUROLOGICAL: [Sensation intact. Speech clear. A+Ox3. No focal deficits]. PSYCHIATRIC: [Depressed mood. Flat affect.]. LABORATORY DATA: Please see below. ASSESSMENT/PLAN: 1. [Withdrawal - Patient states she receives dose of 175mg of methadone daily at home. The iss ue at this time is [facility] staff has been unable to verify this with pain management due to them not returning phone calls, and their office has now closed for the weekend. - Will give one dose of ativan, begin zofran 8mg q4h. - can begin 50mg methadone daily for now until verification of dose is confirmed. Uptitration may be necessary ]. 2. [S/p gastric bypass - Patient has been noncompliant with vitamin therapy at home. will restart daily multivitamin. 3. Depression/anxiety - Continue medications and interventions per primary team ]. Vital Signs/I&O Vital Signs Date Time Temp Pulse Resp B/P (MAP) Pulse Ox O2 Delivery O2 Flow Rate FiO2 10/26/20 16:39 98.7 75 16 128/80 (96) 100 Room Air Laboratory Data Microbiology Microbiology 10/25/20 Respiratory Virus Panel (PCR) ([facility]) - Final, Complete Allergies Coded Allergies: No Known Allergies (Unverified , 04/08/17) Home Medications Scheduled Clonidine HCl (Clonidine HCl) 0.3 Mg Tablet, 0.3 MG PO TID, (Reported) Escitalopram Oxalate (Lexapro) 10 Mg Tablet, 10 MG PO DAILY, (Reported) takes with 20mg to equal 30mg Escitalopram Oxalate (Lexapro) 20 Mg Tablet, 20 MG PO DAILY, (Reported) takes with 10 mg to equal 30mg Gabapentin (Gabapentin) 600 Mg Tablet, 600 MG PO TID, (Reported) Methadone HCl (Methadone HCl) 10 Mg/1 Ml Oral.conc, 175 MG PO QAM, (Reported) Quetiapine Fumarate (Quetiapine Fumarate) 50 Mg Tablet, 50 MG PO QHS, (Reported) TAKE WITH 100MG TABLET FOR A TOTAL OF 150MG Quetiapine Fumarate (Quetiapine Fumarate) 100 Mg Tablet, 100 MG PO QHS, (Reported) takes with 50mg to equal 150mg Ropinirole HCl (Ropinirole HCl) 1 Mg Tablet, 1 MG PO QHS, (Reported) Attending Note Attending Note Per d/w MELVIN Smith the patient's symptoms improved a bit with Methadone. She is on multiple QT prolonging medications. I will order an EKG for tomorrow morning and ask the day time hospitalists to follow up on in. ENID MAR October 26, 2020 19:20 BERNICE COREAS MD October 26, 2020 22:59
[2020-10-26] MEDS ORDERED: METHADONE 10 MG TAB (S0109) PO SCH (19:25)
[2020-10-26] MEDS: QUEtiapine FUMARATE 100 MG TAB PO SCH (19:59)
[2020-10-26] MEDS: QUEtiapine FUMARATE 50MG TAB PO SCH (20:00)
[2020-10-26] MEDS: rOPINIRole 1MG TAB PO SCH (20:00)
[2020-10-27 06:55] VITALS: BP 107/59
[2020-10-27] MEDS: ONDANSETRON 4 MG TAB PO PRN ×4 (07:44→20:19)
[2020-10-27] MEDS: METHADONE 10 MG TAB (S0109) PO SCH ×2 (08:23→16:22)
[2020-10-27] MEDS: MULTIVITAMINS/MINERALS THERAP 1 TAB PO SCH (08:24)
[2020-10-27] MEDS: cloNIDine 0.1MG TABLET PO SCH ×3 (08:24→20:20)
[2020-10-27] MEDS: ESCITALOPRAM OXALATE 10 MG TAB (LEXAPRO) PO SCH (08:25)
[2020-10-27] MEDS: ACETAMINOPHEN TAB 650MG DOSE (2X325MG) PO PRN ×2 (08:25→16:08)
[2020-10-27] MEDS: GABAPENTIN 300 MG CAP PO SCH ×3 (08:25→20:19)
[2020-10-27] MEDS: NICOTINE 21MG/24HR 1 EA TRANSDERMAL TD SCH (08:26)
--- NOTE | 2020-10-27 09:06 | IPNPDOC ---
Text Note Date of Service The patient was seen on 10/27/20. NOTE Hospitalist Progress Note Subjective: The patient continues to suffer from withdrawal symptoms this morning, she is having shakiness, nausea, vomiting, anxiety. She reports that she typically takes 175 mg of methadone daily administered at [facility]. Her last dose was 10/25/2020 at 8:15 AM, and then she just received 50 mg yesterday evening (10/26/2020). [facility] apparently did not respond to their phone calls yesterday, and they're closed today. I will increase her dose to 50 mg twice a day at this time, which should be sufficient to hold her over until we're able to contact [facility] in the morning and verify her dose, and then we can get her back on her usual home dose. Also, she is complaining of some mouth sores and requests Orajel, I will put this into the computer as well. Objective: General: Awake, alert, oriented 3. Appears to be in some mild distress, anxious appearing, and she is restless and nervous. HEENT: Head normocephalic, atraumatic, sclera are nonicteric. Hearing is grossly intact to conversation. Respiratory: Clear to auscultation bilaterally with no wheezes, rales, or rhonchi. Cardiovascular: Regular rate and rhythm, with no rubs, gallops, or murmur. Abdomen: Soft, nontender, nondistended, no hepatosplenomegaly appreciated. Bowel sounds present. Extremities: 2+ pulses in the radial and dorsalis pedis bilaterally. No evidence of clubbing or cyanosis. Assessment/Plan: Methadone withdrawal -Increase dose of methadone to 50 mg twice a day until home dose can be co nfirmed Mouth ulcers -Start Orajel (benzocaine topical) 3 times a day as needed Status post gastric bypass -Continue vitamin therapy Depression/anxiety -Continue management per the psychiatry team VS,Stephanie, I+O VS, Stephanie, I+O Vital Signs Date Time Temp Pulse Resp B/P (MAP) Pulse Ox O2 Delivery O2 Flow Rate FiO2 10/27/20 08:24 134/85 10/27/20 06:55 98.4 73 16 99 10/26/20 16:39 Room Air MARIAM HIRSCH DO October 27, 2020 09:06
--- NOTE | 2020-10-27 09:41 | MHIPNPDOC ---
[facility] Progress Note Progress Note DATE OF SERVICE: 10/27/20 Because of the difficulty confirming her methadone dose with her outpatient clinic. The patient received only 50 mg of methadone yesterday and today. She is complaining of moderate withdrawal symptoms, but does not appear to be in any acute distress. She slept okay. she is eating, but complaining of poor sleep and is asking if her Seroquel can be increased. She is the only a bit more animated, not as demanding and in better control and is willing to cooperate and strongly denies any suicidal thoughts. We will increase her Seroquel to 300 mg at bedtime and continue the supportive therapy HISTORY: . VITAL SIGNS: See below. NEW TEST RESULTS: . CURRENT MEDICATIONS: See below. MENTAL STATUS EXAMINATION: Patient is a [30-year old female, who is [cooperating and in no acute distress]. Speech: Is [, organized and productive]. Language skills are [good]. Thought processes including: [Clear]. Thought content: [, Without any psychosis]. Abstract reasoning, and computation: [Good]. Description of associations: [Firm]. Description of abnormal or psychotic thoughts: None . Judgment: Fair . Insight: Fair]. Orientation: [, Well-oriented]. Recent and remote memory: [Good]. Attention span and concentration: [Fair]. Language: . Fund of knowledge: Average . Mood: [, Moderately anxious]. Affect: [, Appropriate]. DIAGNOSES: 1. . Depressive disorder, NOS 2. ., Polysubstance abuse 3. . ASSESSMENT:[, No significant change, but in good control] MANAGEMENT PLAN: [Continue the current medicine and supportive therapy]. TIME SPENT: [15] minutes. Vital Signs Vital Signs Date Time Temp Pulse Resp B/P (MAP) Pulse Ox O2 Delivery O2 Flow Rate FiO2 10/27/20 08:24 134/85 10/27/20 06:55 98.4 73 16 99 10/26/20 16:39 Room Air Current Medications Current Medications Medications (Trade) Dose Ordered Sig/Moisés Route PRN Reason Start Time Stop Time Status Last Admin Dose Admin Acetaminophen (Tylenol Tab) 650 mg Q6HP PRN PO HEADACHE or DISCOMFORT 10/25/20 21:10 10/27/20 08:25 Al Hydrox/Mg Hydrox/Simethicone (Mylanta) 30 ml Q4HP PRN PO HEARTBURN/INDIGESTION 10/25/20 21:10 Benzocaine (Anbesol Gel) TO MOUTH SORES TID PRN MT PAIN 10/27/20 08:05 Clonidine HCl (Catapres) 0.3 mg TID PO 10/26/20 09:00 10/27/20 08:24 Escitalopram Oxalate (Lexapro) 20 mg DAILY PO 10/26/20 09:00 10/25/20 21:16 DC Escitalopram Oxalate (Lexapro) 30 mg DAILY PO 10/26/20 09:00 10/27/20 08:25 Gabapentin (Neurontin) 600 mg TID PO 10/25/20 21:00 10/27/20 08:25 Home Med (Med Rec Complete!) ASDIRECTED XX 10/25/20 19:05 10/25/20 19:06 DC Magnesium Hydroxide (Milk Of Magnesia) 30 ml DAILYPRN PRN PO CONSTIPATION 10/25/20 21:10 Methadone HCl (Dolophine) 50 mg BID PO 10/27/20 09:00 10/27/20 08:23 Methadone HCl (Dolophine) 50 mg DAILY PO 10/26/20 19:25 10/27/20 08:03 DC 10/26/20 19:41 Multivitamins (Theragram-M) 1 tab DAILY PO 10/26/20 09:00 10/27/20 08:24 Nicotine (Nicoderm Cq 21mg) 1 patch DAILY TD 10/26/20 09:00 10/27/20 08:26 Ondansetron HCl (Zofran) 8 mg Q4HP PRN PO NAUSEA OR VOMITING 10/26/20 18:40 10/27/20 07:44 Quetiapine Fumarate (SEROquel) 50 mg QHS PO 10/25/20 21:00 10/26/20 20:00 Quetiapine Fumarate (SEROquel) 100 mg QHS PO 10/25/20 21:00 10/27/20 09:33 DC 10/26/20 19:59 Quetiapine Fumarate (SEROquel) 300 mg QHS PO 10/27/20 21:00 UNV Ropinirole HCl (Requip) 1 mg QHS PO 10/25/20 21:00 10/26/20 20:00 Trazodone HCl (Desyrel) 50 mg QHSP PRN PO INSOMNIA 10/25/20 21:10 Allergies Coded Allergies: No Known Allergies (Unverified , 04/08/17) ALFRED DOWNS M.D. October 27, 2020 09:41
[2020-10-27] MEDS ORDERED: PILL CUTTER 1 EACH XX PRN (10:15)
--- NOTE | 2020-10-27 12:00 | ECGEPIP ---
[facility] Test Date: 2020-10-27 Pat Name: KALE MCGREGOR Department: Room: [place] [address] Gender: Female Vault Attendant: NIKOLAY : 1990 Requested By: BERNICE COREAS Order Number: [id number] Reading MD: Eddie Camarillo Measurements Intervals Snyder Rate: 74 P: 60 WI: 160 QRS: 49 QRSD: 78 T: 47 QT: 404 QTc: 448 Interpretive Statements SINUS RHYTHM NON-SPECIFIC STT ABNORMALITIES SIMILAR TO 01/25/19 Electronically Signed on 10-27-2020 11:59:57 EDT by Eddie Camarillo
[2020-10-27] MEDS: BENZOCAINE 10% 9GM TUBE (ANBESOL) MT PRN (15:10)
[2020-10-27 16:21] VITALS: BP 122/86
[2020-10-27] MEDS: QUEtiapine FUMARATE 200 MG TAB PO SCH (20:19)
[2020-10-27] MEDS: rOPINIRole 1MG TAB PO SCH (20:20)
[2020-10-28 06:23] VITALS: BP 132/81
[2020-10-28] MEDS: ESCITALOPRAM OXALATE 10 MG TAB (LEXAPRO) PO SCH (08:35)
[2020-10-28] MEDS: MULTIVITAMINS/MINERALS THERAP 1 TAB PO SCH (08:37)
[2020-10-28] MEDS: cloNIDine 0.1MG TABLET PO SCH ×3 (08:37→20:00)
[2020-10-28] MEDS: GABAPENTIN 300 MG CAP PO SCH ×3 (08:38→20:00)
[2020-10-28] MEDS: NICOTINE 21MG/24HR 1 EA TRANSDERMAL TD SCH (08:38)
[2020-10-28] MEDS: METHADONE 10 MG TAB (S0109) PO SCH (08:39)
[2020-10-28] MEDS: ACETAMINOPHEN TAB 650MG DOSE (2X325MG) PO PRN ×2 (09:33→15:36)
[2020-10-28] MEDS: ONDANSETRON 4 MG TAB PO PRN ×3 (09:33→20:01)
[2020-10-28] MEDS: BENZOCAINE 10% 9GM TUBE (ANBESOL) MT PRN ×2 (09:33→15:37)
--- NOTE | 2020-10-28 09:41 | IPNPDOC ---
Text Note Date of Service The patient was seen on 10/28/20. NOTE Hospitalist Progress Note Subjective: And patient was seen and evaluated this morning. She seems to be doing a bit better in regard to her withdrawal symptoms. We were able to contact [facility] this morning and they did confirm that she is on a dose of 175 mg methadone daily. To simplify dosing, and the fact when they have 10 mg pills, I will resume her on 170 mg daily while inpatient, and she can get her first dose this morning. Otherwise she does not have any additional medical complaints at this time. Objective: General: Awake, alert, oriented 3. Appears to be somewhat restless, but not in distress at this time. HEENT: Head normocephalic, atraumatic, sclera are nonicteric. Hearing is grossly intact to conversation. Assessment/Plan: Methadone withdrawal -We have confirmed that she is typically on a dose of 175 mg methadone daily -For ease of administration and we will have her on 170 mg methadone daily while inpatient. Mouth ulcers -Continue Orajel (benzocaine topical) 3 times a day as needed Status post gastric bypass -Continue vitamin therapy Depression/anxiety -Continue management per the psychiatry team Thanks very much for involving us in the care of this patient. Hospitalist group will sign off at this time, please reconsult us if any additional issues arise. VS,Fishbone, I+O VS, Fishbone, I+O Vital Signs Date Time Temp Pulse Resp B/P (MAP) Pulse Ox O2 Delivery O2 Flow Rate FiO2 10/28/20 08:37 144/84 10/28/20 06:23 98.2 74 20 99 Room Air MARIAM HRISCH DO October 28, 2020 09:41
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
[2020-10-28 16:55] VITALS: BP 123/85
[2020-10-28] MEDS: rOPINIRole 1MG TAB PO SCH (20:00)
[2020-10-28] MEDS: QUEtiapine FUMARATE 200 MG TAB PO SCH (20:01)
[2020-10-29 06:41] VITALS: BP 117/75
[2020-10-29] MEDS: METHADONE 10 MG TAB (S0109) PO SCH (08:19)
[2020-10-29] MEDS: GABAPENTIN 300 MG CAP PO SCH (08:21)
[2020-10-29] MEDS: ESCITALOPRAM OXALATE 10 MG TAB (LEXAPRO) PO SCH (08:21)
[2020-10-29] MEDS: BENZOCAINE 10% 9GM TUBE (ANBESOL) MT PRN (08:21)
[2020-10-29 08:22] VITALS: BP 126/82
[2020-10-29] MEDS: cloNIDine 0.1MG TABLET PO SCH (08:22)
[2020-10-29] MEDS: MULTIVITAMINS/MINERALS THERAP 1 TAB PO SCH (08:23)
[2020-10-29] MEDS: ONDANSETRON 4 MG TAB PO PRN (08:23)
[2020-10-29] MEDS: ACETAMINOPHEN TAB 650MG DOSE (2X325MG) PO PRN (08:23)
[2020-10-29] MEDS: NICOTINE 21MG/24HR 1 EA TRANSDERMAL TD SCH (08:24)
[2020-10-29] MEDS ORDERED: QUET300T2 PO (09:07)
[2020-10-29] MEDS ORDERED: NICO2GUM MT (09:10)
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
== END 2020-10-29 12:00 | disposition home or self-care (01) | DRG 754 ==
LOC: M ED 18:07 → M ED INP 21:08 → M PSY 23:18
PROVIDERS: ADMIT Psychiatry & Neurology Psychiatry; ATTEND Psychiatry & Neurology Psychiatry
DX: F32.9 Major depressive disorder, single episode, unspecified (principal); F19.139 Other psychoactive substance abuse with withdrawal, unspecified; Z91.5 Personal history of self-harm; F17.290 Nicotine dependence, other tobacco product, uncomplicated; K21.9 Gastro-esophageal reflux disease without esophagitis; I10 Essential (primary) hypertension; E78.5 Hyperlipidemia, unspecified; Z98.84 Bariatric surgery status; F41.9 Anxiety disorder, unspecified; Z91.14 Patient's other noncompliance with medication regimen; Z20.822 Contact with and (suspected) exposure to COVID-19; Z79.899 Other long term (current) drug therapy; K12.30 Oral mucositis (ulcerative), unspecified

== ENCOUNTER 2021-06-23 21:39 | Emergency (ER) | payer OTHER ==
[~2021-06-23] VITALS: Ht 170.2 cm; Wt 87.2 kg
[~2021-06-23 21:39] MED LIST changes: +GABA600T4 PO; +LEXA1TAB PO; +METH-1178 PO; -METH10TA3 PO; +NICO2GUM MT; +QUET300T2 PO; -QUET50TA3 PO; +QUET50TA4 PO; +REQU1TAB14 PO
[2021-06-23] MEDS ORDERED: ACETAMINOPHEN 500 MG TAB PO ONE (21:50)
[2021-06-23 22:45] VITALS: BP 126/79
[2021-06-23] MEDS ORDERED: PROAAER10 INH (23:14)
== END 2021-06-23 23:45 | disposition home or self-care (01) ==
LOC: M ED 21:39
DX: R06.00 Dyspnea, unspecified (principal); B34.8 Other viral infections of unspecified site; I10 Essential (primary) hypertension; B19.20 Unspecified viral hepatitis C without hepatic coma; E28.2 Polycystic ovarian syndrome; Z98.84 Bariatric surgery status; Z79.899 Other long term (current) drug therapy; Z79.891 Long term (current) use of opiate analgesic; F17.210 Nicotine dependence, cigarettes, uncomplicated
CPT/HCPCS: 99283; U0003

== ENCOUNTER → 2021-12-29 | Outpatient (CLI) | payer OTHER ==
[~2021-12-29] MED LIST changes: +PROAAER10 INH
[2021-12-29 09:21] LABS: HEMATOCRIT 35.3 % (36.0-47.0); HEMOGLOBIN 11.2 g/dl (12.0-15.5); MEAN CORPUSCULAR HEMOGLOBIN 28.9 pg (27.0-33.0); MEAN CORPUSCULAR HGB CONC 31.7 g/dl (32.0-36.5); PLATELET COUNT, AUTOMATED 291 10^3/uL (150-450); RED BLOOD COUNT 3.88 10^6/uL (4.00-5.40); WHITE BLOOD COUNT 6.9 10^3/uL (4.0-10.0)
[2021-12-29 09:56] LABS: HCG, SERUM QUALITATIVE NEGATIVE (NEGATIVE)
[2021-12-29 10:09] LABS: ALBUMIN 3.4 GM/DL (3.2-5.2); ALT/SGPT 20 U/L (12-78); BILIRUBIN,TOTAL 0.3 MG/DL (0.2-1.0); BLOOD UREA NITROGEN 10 MG/DL (7-18); CARBON DIOXIDE LEVEL 27 MEQ/L (21-32); CHLORIDE LEVEL 107 MEQ/L (98-107); CREATININE FOR GFR 0.83 MG/DL (0.55-1.30); GLOMERULAR FILTRATION RATE > 60.0 (>60); GLUCOSE, FASTING 111 MG/DL (70-100); POTASSIUM SERUM 4.4 MEQ/L (3.5-5.1); SODIUM LEVEL 140 MEQ/L (136-145); TOTAL PROTEIN 7.5 GM/DL (6.4-8.2)
[2021-12-29 11:12] LABS: GC DNA AMPLIFICATION NEGATIVE (NEGATIVE)
[2021-12-29 11:27] LABS: HEPATITIS B SURFACE ANTIGEN NEGATIVE (NEGATIVE)
[2021-12-29 11:52] LABS: HIV 1&2 SCREEN CENTAUR NEGATIVE (NEGATIVE)
[2021-12-29 12:40] LABS: HEPATITIS C VIRUS ABY INDEX > 11.0 INDEX (<0.8)
== END ==
LOC: M LAB 08:28
PROVIDERS: ATTEND Family Medicine
DX: F11.20 Opioid dependence, uncomplicated (principal)
CPT/HCPCS: 36415; 80053; 84703; 85027; 86780; 86803; 87340; 87389; 87522; 87810; 87850; G0480

== ENCOUNTER → 2021-12-30 | Outpatient (CLI) | payer OTHER | LOC: M LAB 08:32 | PROVIDERS: ATTEND Family Medicine | DX: F11.20 Opioid dependence, uncomplicated (principal) | CPT/HCPCS: 36415; G0480 ==

== ENCOUNTER 2022-11-01 21:49 | Emergency (ER) | payer MEDICAID, OTHER ==
[~2022-11-01 21:49] MED LIST changes: -BENZ-52 PO; +BENZ1TAB5 PO; +TOPI-254 PO; -TOPI50TA9 PO
[2022-11-01 22:06] VITALS: BP 154/97
[2022-11-01 22:39] LABS: HEMATOCRIT 36.2 % (36.0-47.0); HEMOGLOBIN 11.8 g/dl (12.0-15.5); MEAN CORPUSCULAR HEMOGLOBIN 27.7 pg (27.0-33.0); MEAN CORPUSCULAR HGB CONC 32.6 g/dl (32.0-36.5); PLATELET COUNT, AUTOMATED 316 10^3/uL (150-450); RED BLOOD COUNT 4.26 10^6/uL (4.00-5.40); WHITE BLOOD COUNT 13.1 10^3/uL (4.0-10.0)
[2022-11-01 23:01] LABS: AMPHETAMINES LEVEL URINE NEGATIVE (NEGATIVE); BARBITURATES URINE NEGATIVE (NEGATIVE); BENZODIAZEPINES URINE NEGATIVE (NEGATIVE); CANNABINOIDS URINE NEGATIVE (NEGATIVE); COCAINE METABOLITE URINE NEGATIVE (NEGATIVE); OPIATES URINE NEGATIVE (NEGATIVE); PHENCYCLIDINE URINE NEGATIVE (NEGATIVE)
[2022-11-01 23:03] LABS: ETHYL ALCOHOL (ETHANOL) < 0.003 % (0.000-0.010)
[2022-11-01 23:04] LABS: ACETAMINOPHEN LEVEL < 2.0 UG/ML (10.0-20.0); METHADONE URINE POSITIVE (NEGATIVE)
[2022-11-01 23:05] LABS: ALBUMIN 4.2 G/DL (3.2-5.2); ALKALINE PHOSPHATASE 102 U/L (46-116); ALT/SGPT 44 U/L (7.0-40); AST/SGOT 108 U/L (<34); BILIRUBIN,DIRECT 0.2 MG/DL (<0.4); BILIRUBIN,TOTAL 0.8 MG/DL (0.3-1.2); BLOOD UREA NITROGEN 26 MG/DL (9-23); CALCIUM LEVEL 9.7 MG/DL (8.5-10.1); CARBON DIOXIDE LEVEL 22 MMOL/L (20-31); CHLORIDE LEVEL 109 MMOL/L (98-107); CREATININE FOR GFR 1.38 MG/DL (0.55-1.30); GLOMERULAR FILTRATION RATE 47.5 (>60); GLUCOSE, FASTING 85 MG/DL (60-100); HCG, SERUM QUALITATIVE NEGATIVE (NEGATIVE); POTASSIUM SERUM 3.8 MMOL/L (3.5-5.1); SALICYLATE LEVEL < 3.0 MG/DL (<30); SODIUM LEVEL 144 MMOL/L (136-145); TOTAL PROTEIN 7.8 G/DL (5.7-8.2)
[2022-11-01 23:07] LABS: THYROID STIMULATING HORMONE 3.107 uIU/ML (0.55-4.78)
[2022-11-01] MEDS ORDERED: LORazepam 2 MG TAB PO ONE (23:35)
[2022-11-02] MEDS ORDERED: TOPI200T7 PO ×2 (00:16→00:20)
[2022-11-02] MEDS ORDERED: ZOLP5TAB PO (00:16)
[2022-11-02] MEDS ORDERED: DOXA1TAB49 PO (00:20)
[2022-11-02] MEDS ORDERED: PARO40TA2 PO (00:20)
[2022-11-02] MEDS ORDERED: QUET50TA4 PO (00:20)
[2022-11-02] MEDS ORDERED: GABA-282 PO (00:20)
[2022-11-02] MEDS ORDERED: HOME MED LIST COMPLETE! XX SCH (00:25)
[2022-11-02] MEDS ORDERED: LORazepam 2 MG/ML 1ML VIAL IM STA (01:27)
[2022-11-02] MEDS ORDERED: OLANZapine INTRAMUSCULAR 10MG VIAL IM ONE (04:05)
== END 2022-11-02 11:40 | disposition home or self-care (01) ==
LOC: M ED 21:49
DX: F32.A Depression, unspecified (principal); F19.10 Other psychoactive substance abuse, uncomplicated; E28.2 Polycystic ovarian syndrome; Z98.84 Bariatric surgery status; F17.210 Nicotine dependence, cigarettes, uncomplicated; Z79.899 Other long term (current) drug therapy
CPT/HCPCS: 80048; 80076; 80143; 80307; 82077; 84443; 84703; 85027; 87635; 96372; 99284; J2060; S0166

== ENCOUNTER 2022-11-12 08:38 | Inpatient (IN) | payer MEDICAID ==
[~2022-11-12] VITALS: Ht 170.2 cm; Wt 90.9 kg
[~2022-11-12 08:38] MED LIST changes: +DOXA1TAB49 PO; +GABA-282 PO; +PARO40TA2 PO; +TOPI200T7 PO; +ZOLP5TAB PO
[2022-11-12] MEDS: NICOTINE 21MG/24HR 1 EA TRANSDERMAL TD SCH (09:00)
[2022-11-12 09:49] LABS: HEMATOCRIT 35.2 % (36.0-47.0); HEMOGLOBIN 11.5 g/dl (12.0-15.5); MEAN CORPUSCULAR HEMOGLOBIN 27.6 pg (27.0-33.0); MEAN CORPUSCULAR HGB CONC 32.7 g/dl (32.0-36.5); MEAN CORPUSCULAR VOLUME 84.6 fl (80.0-96.0); PLATELET COUNT, AUTOMATED 280 10^3/uL (150-450); RED BLOOD COUNT 4.16 10^6/uL (4.00-5.40); WHITE BLOOD COUNT 7.1 10^3/uL (4.0-10.0)
[2022-11-12 10:13] LABS: ETHYL ALCOHOL (ETHANOL) 0.003 % (0.000-0.010)
[2022-11-12 10:14] LABS: ACETAMINOPHEN LEVEL < 2.0 UG/ML (10.0-20.0); ALBUMIN 3.7 G/DL (3.2-5.2); ALKALINE PHOSPHATASE 96 U/L (46-116); ALT/SGPT 28 U/L (7.0-40); AST/SGOT 28 U/L (<34); BILIRUBIN,DIRECT < 0.1 MG/DL (<0.4); BILIRUBIN,TOTAL 0.3 MG/DL (0.3-1.2); BLOOD UREA NITROGEN 10 MG/DL (9-23); CALCIUM LEVEL 8.5 MG/DL (8.5-10.1); CARBON DIOXIDE LEVEL 23 MMOL/L (20-31); CHLORIDE LEVEL 107 MMOL/L (98-107); CREATININE FOR GFR 0.83 MG/DL (0.55-1.30); GLOMERULAR FILTRATION RATE > 60.0 (>60); GLUCOSE, FASTING 82 MG/DL (60-100); POTASSIUM SERUM 4.1 MMOL/L (3.5-5.1); SALICYLATE LEVEL < 3.0 MG/DL (<30); SODIUM LEVEL 139 MMOL/L (136-145)
[2022-11-12 10:17] LABS: THYROID STIMULATING HORMONE 0.829 uIU/ML (0.55-4.78)
[2022-11-12 10:37] LABS: AMPHETAMINES LEVEL URINE NEGATIVE (NEGATIVE); BARBITURATES URINE NEGATIVE (NEGATIVE); BENZODIAZEPINES URINE NEGATIVE (NEGATIVE); CANNABINOIDS URINE NEGATIVE (NEGATIVE); COCAINE METABOLITE URINE NEGATIVE (NEGATIVE); OPIATES URINE NEGATIVE (NEGATIVE); PHENCYCLIDINE URINE NEGATIVE (NEGATIVE)
[2022-11-12 10:38] LABS: METHADONE URINE POSITIVE (NEGATIVE)
[2022-11-12] MEDS ORDERED: GABAPENTIN 300 MG CAP PO ONE (11:35)
[2022-11-12] MEDS ORDERED: cloNIDine 0.1MG TABLET PO ONE (11:35)
[2022-11-12] MEDS ORDERED: MOM 30ML SUSPENSION UDC PO PRN (13:45)
[2022-11-12] MEDS ORDERED: diphenhydrAMINE 25MG CAP PO PRN (13:45)
[2022-11-12] MEDS ORDERED: traZODone 50 MG TAB PO PRN (13:45)
[2022-11-12] MEDS ORDERED: IBUPROFEN 400MG TAB PO PRN (13:45)
[2022-11-12] MEDS ORDERED: ACETAMINOPHEN TAB 650MG DOSE (2X325MG) PO PRN (13:45)
[2022-11-12] MEDS ORDERED: MAALOX 30 ML SUSP *UDC PO PRN (13:45)
[2022-11-12] MEDS ORDERED: ONDANSETRON 4MG ORAL DISINTEGRATING TAB PO ONE (14:10)
[2022-11-12] MEDS ORDERED: HOME MED LIST COMPLETE! XX SCH (14:15)
[2022-11-12 17:03] VITALS: BP 129/72; TEMP 97.7; O2SAT 98
[2022-11-12] MEDS ORDERED: QUEtiapine FUMARATE 50MG TAB PO PRN (21:30)
[2022-11-12] MEDS: TOPIRAMATE (TopAMAX) 100 MG TAB PO SCH (21:39)
[2022-11-12] MEDS: PARoxetine 20MG TABLET PO SCH (21:39)
[2022-11-12] MEDS: cloNIDine 0.1MG TABLET PO SCH (21:39)
[2022-11-12] MEDS: zolPIDEM TARTRATE 5 MG TAB PO PRN (21:39)
[2022-11-12] MEDS: GABAPENTIN 300 MG CAP PO SCH (21:39)
[2022-11-12] MEDS: DOXAZOSIN MESYLATE 4 MG TAB PO SCH (22:02)
[2022-11-13 06:44] VITALS: BP 126/65; TEMP 96.9; O2SAT 99
[2022-11-13] MEDS: NICOTINE 21MG/24HR 1 EA TRANSDERMAL TD SCH (08:47)
[2022-11-13] MEDS: GABAPENTIN 300 MG CAP PO SCH ×3 (08:53→20:27)
[2022-11-13] MEDS: cloNIDine 0.1MG TABLET PO SCH ×3 (08:54→20:26)
[2022-11-13] MEDS: PILL CUTTER 1 EACH XX PRN (09:20)
[2022-11-13] MEDS: METHADONE 10MG TAB PO SCH (09:21)
[2022-11-13 10:16] LABS: HCG, SERUM QUALITATIVE NEGATIVE (NEGATIVE)
[2022-11-13] MEDS: ONDANSETRON 4MG TAB PO PRN ×2 (13:28→21:38)
[2022-11-13] MEDS: CEFDINIR 300 MG CAP (OMNICEF) PO SCH ×2 (13:28→20:27)
[2022-11-13] MEDS: NEOSPORIN TOP OINT 15GM TOP SCH ×2 (15:50→20:19)
[2022-11-13] MEDS: LACTOBACILLUS ACIDOPHILUS CAP (BACID) PO SCH (17:53)
[2022-11-13 19:17] VITALS: BP 110/60; TEMP 96
[2022-11-13] MEDS: PARoxetine 20MG TABLET PO SCH (20:27)
[2022-11-13] MEDS: TOPIRAMATE (TopAMAX) 100 MG TAB PO SCH (20:27)
[2022-11-13] MEDS: DOXAZOSIN MESYLATE 4 MG TAB PO SCH (20:27)
[2022-11-13] MEDS: zolPIDEM TARTRATE 5 MG TAB PO PRN (21:38)
[2022-11-14 06:11] VITALS: BP 121/79; TEMP 97.5; O2SAT 99
[2022-11-14] MEDS: CEFDINIR 300 MG CAP (OMNICEF) PO SCH ×2 (07:58→20:20)
[2022-11-14] MEDS: GABAPENTIN 300 MG CAP PO SCH ×3 (07:59→20:21)
[2022-11-14] MEDS: LACTOBACILLUS ACIDOPHILUS CAP (BACID) PO SCH ×2 (07:59→17:36)
[2022-11-14] MEDS: PILL CUTTER 1 EACH XX PRN (08:00)
[2022-11-14] MEDS: cloNIDine 0.1MG TABLET PO SCH ×3 (08:00→20:22)
[2022-11-14] MEDS: ONDANSETRON 4MG TAB PO PRN (08:02)
[2022-11-14] MEDS: METHADONE 10MG TAB PO SCH (08:03)
[2022-11-14] MEDS: NICOTINE 21MG/24HR 1 EA TRANSDERMAL TD SCH (08:05)
[2022-11-14] MEDS: NEOSPORIN TOP OINT 15GM TOP SCH ×2 (08:06→20:13)
[2022-11-14] MEDS: TOPIRAMATE (TopAMAX) 25 MG TAB PO SCH (11:53)
[2022-11-14] MEDS: ONDANSETRON 4MG ORAL DISINTEGRATING TAB PO PRN (16:10)
[2022-11-14 18:00] VITALS: BP 112/66; TEMP 97
[2022-11-14] MEDS: zolPIDEM TARTRATE 5 MG TAB PO PRN (20:21)
[2022-11-14] MEDS: TOPIRAMATE (TopAMAX) 100 MG TAB PO SCH (20:21)
[2022-11-14] MEDS: DOXAZOSIN MESYLATE 4 MG TAB PO SCH (20:21)
[2022-11-14] MEDS: PARoxetine 20MG TABLET PO SCH (20:21)
[2022-11-15 06:04] VITALS: BP 112/78; TEMP 97.6; O2SAT 95
[2022-11-15] MEDS: ONDANSETRON 4MG ORAL DISINTEGRATING TAB PO PRN ×3 (06:22→21:41)
[2022-11-15] MEDS: LACTOBACILLUS ACIDOPHILUS CAP (BACID) PO SCH ×2 (08:14→18:29)
[2022-11-15 08:16] VITALS: BP 80/48
[2022-11-15] MEDS: NICOTINE 21MG/24HR 1 EA TRANSDERMAL TD SCH (08:17)
[2022-11-15] MEDS: NEOSPORIN TOP OINT 15GM TOP SCH ×2 (08:17→21:00)
[2022-11-15] MEDS: CEFDINIR 300 MG CAP (OMNICEF) PO SCH ×2 (08:19→21:30)
[2022-11-15] MEDS: GABAPENTIN 300 MG CAP PO SCH ×3 (08:19→21:30)
[2022-11-15] MEDS: TOPIRAMATE (TopAMAX) 25 MG TAB PO SCH (08:20)
[2022-11-15] MEDS: METHADONE 10MG TAB PO SCH (08:21)
[2022-11-15] MEDS: PILL CUTTER 1 EACH XX PRN (08:21)
[2022-11-15] MEDS: cloNIDine 0.1MG TABLET PO SCH ×3 (09:00→21:00)
[2022-11-15 09:26] VITALS: BP 90/48
[2022-11-15 18:00] VITALS: BP 90/48; TEMP 96.9
[2022-11-15] MEDS: TOPIRAMATE (TopAMAX) 100 MG TAB PO SCH (21:29)
[2022-11-15] MEDS: DOXAZOSIN MESYLATE 4 MG TAB PO SCH (21:29)
[2022-11-15] MEDS: PARoxetine 20MG TABLET PO SCH (21:30)
[2022-11-15] MEDS: zolPIDEM TARTRATE 5 MG TAB PO PRN (21:35)
[2022-11-16 06:13] VITALS: BP 82/59; TEMP 97; O2SAT 96
[2022-11-16 08:41] VITALS: BP 102/58
[2022-11-16] MEDS: cloNIDine 0.1MG TABLET PO SCH ×3 (08:42→20:57)
[2022-11-16] MEDS: NICOTINE 21MG/24HR 1 EA TRANSDERMAL TD SCH (08:43)
[2022-11-16] MEDS: NEOSPORIN TOP OINT 15GM TOP SCH ×2 (08:43→20:59)
[2022-11-16] MEDS: TOPIRAMATE (TopAMAX) 25 MG TAB PO SCH (08:45)
[2022-11-16] MEDS: PILL CUTTER 1 EACH XX PRN (08:45)
[2022-11-16] MEDS: CEFDINIR 300 MG CAP (OMNICEF) PO SCH ×2 (08:45→20:57)
[2022-11-16] MEDS: METHADONE 10MG TAB PO SCH (08:46)
[2022-11-16] MEDS: LACTOBACILLUS ACIDOPHILUS CAP (BACID) PO SCH ×2 (08:47→17:13)
[2022-11-16] MEDS: GABAPENTIN 300 MG CAP PO SCH ×3 (08:47→20:57)
[2022-11-16] MEDS: ONDANSETRON 4MG ORAL DISINTEGRATING TAB PO PRN ×2 (08:54→17:13)
[2022-11-16] MEDS: ARIPiprazole 2 MG TAB PO SCH (09:57)
[2022-11-16 15:39] VITALS: BP 98/62; TEMP 97.5; O2SAT 97
[2022-11-16] MEDS: PARoxetine 20MG TABLET PO SCH (20:56)
[2022-11-16] MEDS: zolPIDEM TARTRATE 5 MG TAB PO PRN (20:56)
[2022-11-16] MEDS: TOPIRAMATE (TopAMAX) 100 MG TAB PO SCH (20:57)
[2022-11-16] MEDS ORDERED: DOXAZOSIN MESYLATE 4 MG TAB PO SCH (21:00)
[2022-11-17 06:43] VITALS: BP 110/60; TEMP 97.9; O2SAT 100
[2022-11-17] MEDS: CEFDINIR 300 MG CAP (OMNICEF) PO SCH (08:41)
[2022-11-17] MEDS: LACTOBACILLUS ACIDOPHILUS CAP (BACID) PO SCH (08:41)
[2022-11-17] MEDS: GABAPENTIN 300 MG CAP PO SCH (08:41)
[2022-11-17] MEDS: ARIPiprazole 2 MG TAB PO SCH (08:42)
[2022-11-17] MEDS: METHADONE 10MG TAB PO SCH (08:44)
[2022-11-17] MEDS: NICOTINE 21MG/24HR 1 EA TRANSDERMAL TD SCH (08:44)
[2022-11-17] MEDS: TOPIRAMATE (TopAMAX) 25 MG TAB PO SCH (08:44)
[2022-11-17 08:48] VITALS: BP 114/78
[2022-11-17] MEDS: cloNIDine 0.1MG TABLET PO SCH (08:48)
[2022-11-17] MEDS: NEOSPORIN TOP OINT 15GM TOP SCH (08:49)
[2022-11-17] MEDS: ONDANSETRON 4MG ORAL DISINTEGRATING TAB PO PRN (08:50)
[2022-11-17] MEDS ORDERED: NICO21PAT TD (09:24)
[2022-11-17] MEDS ORDERED: ONDA4TAB6 PO (09:24)
[2022-11-17] MEDS ORDERED: ABIL1TAB13 PO (09:24)
[2022-11-17] MEDS ORDERED: HYDR-3363 PO (09:24)
== END 2022-11-17 11:33 | disposition home or self-care (01) | DRG 755 ==
LOC: M ED 08:38 → M ED INP 13:45 → M PSY 16:01
PROVIDERS: ADMIT Student in an Organized Health Care Education/Training Program; ATTEND Student in an Organized Health Care Education/Training Program
DX: F43.10 Post-traumatic stress disorder, unspecified (principal); F32.A Depression, unspecified; F16.10 Hallucinogen abuse, uncomplicated; R45.851 Suicidal ideations; I10 Essential (primary) hypertension; F17.210 Nicotine dependence, cigarettes, uncomplicated; E78.5 Hyperlipidemia, unspecified; K21.9 Gastro-esophageal reflux disease without esophagitis; F41.9 Anxiety disorder, unspecified; R30.0 Dysuria; D64.9 Anemia, unspecified; E66.9 Obesity, unspecified; G62.9 Polyneuropathy, unspecified; E28.2 Polycystic ovarian syndrome; Z91.51 Personal history of suicidal behavior; Z68.31 Body mass index [BMI] 31.0-31.9, adult; Z91.52 Personal history of nonsuicidal self-harm; Z98.84 Bariatric surgery status; Z63.8 Other specified problems related to primary support group; Z62.810 Personal history of physical and sexual abuse in childhood

== ENCOUNTER 2024-01-28 14:37 | Emergency (ER) | payer MEDICAID, OTHER ==
[~2024-01-28] VITALS: Ht 170.2 cm; Wt 80.5 kg
[~2024-01-28 14:37] MED LIST changes: +ABIL1TAB13 PO; -GABA-283 PO; +GABA-284 PO; +HYDR-3363 PO; +ONDA-282 PO; -ROPI1TAB3 PO; +ROPI1TAB73 PO; +TOPI-21 PO; -TOPI-254 PO
[2024-01-28] MEDS: IBUPROFEN 600MG TAB PO ONE (16:38)
[2024-01-28] MEDS ORDERED: LIDO1CRE2 TOP (17:20)
[2024-01-28] MEDS: LIDOCAINE 4% CREAM 5GM (LMX4) TOP ONE (17:33)
[2024-01-28 17:35] VITALS: BP 125/67; TEMP 97.9; O2SAT 97
== END 2024-01-28 17:49 | disposition home or self-care (01) ==
LOC: M ED 14:37
DX: M25.512 Pain in left shoulder (principal); I10 Essential (primary) hypertension; K21.9 Gastro-esophageal reflux disease without esophagitis; F31.9 Bipolar disorder, unspecified; Z79.899 Other long term (current) drug therapy

== ENCOUNTER → 2024-06-22 | Outpatient (CLI) | payer OTHER ==
[~2024-06-22] MED LIST changes: +GABA-1172 PO; +GABA-1490 PO; +GABA-1635 PO; -GABA-282 PO; -GABA600T4 PO; -GABA800T4 PO; +LIDO4CRE12 TOP
[2024-06-22 15:21] LABS: HEMATOCRIT 41.3 % (36.0-47.0); HEMOGLOBIN 13.2 g/dl (12.0-15.5); MEAN CORPUSCULAR HEMOGLOBIN 28.9 pg (27.0-33.0); MEAN CORPUSCULAR VOLUME 90.6 fl (80.0-96.0); PLATELET COUNT, AUTOMATED 219 10^3/uL (150-450); RED BLOOD COUNT 4.56 10^6/uL (4.00-5.40); WHITE BLOOD COUNT 5.7 10^3/uL (4.0-10.0)
[2024-06-22 15:43] LABS: ALBUMIN 4.5 G/DL (3.2-5.2); ALKALINE PHOSPHATASE 82 U/L (35-104); ALT/SGPT 10 U/L (7.0-40); AST/SGOT 9 U/L (<34); BILIRUBIN,TOTAL 0.3 MG/DL (0.3-1.2); BLOOD UREA NITROGEN 11 MG/DL (9-23); CALCIUM LEVEL 9.8 MG/DL (8.5-10.1); CARBON DIOXIDE LEVEL 26 MMOL/L (20-31); CHLORIDE LEVEL 108 MMOL/L (98-107); CREATININE FOR GFR 0.76 MG/DL (0.55-1.30); GLOMERULAR FILTRATION RATE > 60.0 (>60); GLUCOSE, FASTING 72 MG/DL (60-100); POTASSIUM SERUM 3.9 MMOL/L (3.5-5.1); SODIUM LEVEL 140 MMOL/L (136-145); TOTAL PROTEIN 8.3 G/DL (5.7-8.2)
[2024-06-22 15:59] LABS: HEPATITIS B SURFACE ANTIGEN NEGATIVE (NEGATIVE)
[2024-06-22 16:08] LABS: HCG, SERUM QUALITATIVE NEGATIVE (NEGATIVE)
[2024-06-22 16:12] LABS: HIV 1&2 SCREEN NEGATIVE (NEGATIVE)
[2024-06-22 16:36] LABS: HEPATITIS C VIRUS ABY INDEX > 11.00 INDEX (<0.8)
[2024-06-22 17:00] LABS: GC DNA AMPLIFICATION NEGATIVE (NEGATIVE)
== END ==
LOC: M LAB 13:58
PROVIDERS: ATTEND Family Medicine
DX: F11.20 Opioid dependence, uncomplicated (principal)

== ENCOUNTER → 2024-06-22 | Outpatient (CLI) | payer OTHER ==
[2024-06-22 15:45] LABS: ALBUMIN 4.1 G/DL (3.2-5.2); ALKALINE PHOSPHATASE 77 U/L (35-104); ALT/SGPT < 9 U/L (7.0-40); AST/SGOT 9 U/L (<34); BILIRUBIN,TOTAL 0.3 MG/DL (0.3-1.2); BLOOD UREA NITROGEN 13 MG/DL (9-23); CALCIUM LEVEL 9.7 MG/DL (8.5-10.1); CARBON DIOXIDE LEVEL 24 MMOL/L (20-31); CHLORIDE LEVEL 106 MMOL/L (98-107); CHOLESTEROL LEVEL 207 MG/DL (<200); CHOLESTEROL RISK RATIO 4.36 (<5); CREATININE FOR GFR 0.72 MG/DL (0.55-1.30); GLOMERULAR FILTRATION RATE > 60.0 (>60); GLUCOSE, FASTING 101 MG/DL (60-100); HDL CHOLESTEROL 47.4 MG/DL (>40); LDL CHOLESTEROL 122.6 MG/DL (<100); LITHIUM LEVEL 0.46 MMOL/L (1.0-1.20); NON-HDL-C 159.6 MG/DL; POTASSIUM SERUM 4.2 MMOL/L (3.5-5.1); SODIUM LEVEL 140 MMOL/L (136-145); TOTAL PROTEIN 8.2 G/DL (5.7-8.2); TRIGLYCERIDES LEVEL 185 MG/DL (<150)
[2024-06-22 15:47] LABS: THYROID STIMULATING HORMONE 2.533 uIU/ML (0.55-4.78); TOTAL 25(OH) VITAMIN D 21.9 NG/ML (20.0-100.0)
[2024-06-22 16:07] LABS: HCG, SERUM QUALITATIVE NEGATIVE (NEGATIVE)
== END ==
LOC: M LAB 14:03
PROVIDERS: ATTEND Registered Nurse Psychiatric/Mental Health
DX: Z71.89 Other specified counseling (principal)

== ENCOUNTER → 2025-01-10 | Outpatient (REF) | payer OTHER ==
[~2025-01-10] MED LIST changes: -AMBI10TA PO; -AMBI5TAB PO; +CLON0.2T; +DOXA1TAB40; +LITH300T; +METF500T13; +OMEP40CA5; +PROM25TA22 PO; +TOPI-14 PO; +TOPI-256; -TOPI200T7 PO; +ZOLP-532 PO; +ZOLP-533 PO
== END ==
LOC: M LAB REF 13:33
PROVIDERS: ATTEND Student in an Organized Health Care Education/Training Program
DX: N39.41 Urge incontinence (principal)

== ENCOUNTER → 2025-03-01 | Outpatient (CLI) | payer OTHER ==
[~2025-03-01] MED LIST changes: +ZOLP10TA11 PO; -ZOLP10TA2 PO; -ZOLP5TAB PO; +ZOLP5TAB9 PO
== END ==
LOC: M WHC 07:32
PROVIDERS: ATTEND Physician Assistant Surgical
DX: K91.2 Postsurgical malabsorption, not elsewhere classified (principal); Z98.84 Bariatric surgery status; Z86.39 Personal history of other endocrine, nutritional and metabolic disease; R10.11 Right upper quadrant pain; F50.89 Other specified eating disorder

== ENCOUNTER 2025-04-13 16:01 | Emergency (ER) | payer OTHER ==
[2025-04-13 16:16] VITALS: BP 125/93; O2SAT 99
[2025-04-13] MEDS: NS 500 ML IV ONE (16:20)
[2025-04-13 16:38] LABS: BASO # 0.1 10^3/uL (0.0-0.2); BASO % 0.8 % (0.0-1.0); EOS # 0.4 10^3/uL (0.0-0.5); EOS % 5.0 % (0.0-3.0); LYMPH # 2.8 10^3/uL (1.5-5.0); LYMPH % 39.4 % (24.0-44.0); MONO # 0.6 10^3/uL (0.0-0.8); MONO % 7.9 % (2.0-8.0); NEUTROPHILS # 3.3 10^3/uL (1.5-8.5); NEUTROPHILS % 46.8 % (36.0-66.0); PLATELET COUNT, AUTOMATED 305 10^3/uL (150-450)
[2025-04-13 17:03] LABS: CK-MB VALUE MASS 2.6 NG/ML (<3.6)
[2025-04-13 17:05] LABS: ETHYL ALCOHOL (ETHANOL) < 0.003 % (0.000-0.010)
[2025-04-13 17:07] LABS: ALT/SGPT 15 U/L (7.0-40); AST/SGOT 23 U/L (<34); CALCIUM LEVEL 9.3 MG/DL (8.5-10.1); CARBON DIOXIDE LEVEL 26 MMOL/L (20-31); CHLORIDE LEVEL 109 MMOL/L (98-107); CREATININE FOR GFR 0.82 MG/DL (0.55-1.30); GLOMERULAR FILTRATION RATE > 90.0 (>60); POTASSIUM SERUM 4.4 MMOL/L (3.5-5.1); SALICYLATE LEVEL < 3.0 MG/DL (<30); SODIUM LEVEL 144 MMOL/L (136-145)
[2025-04-13 17:09] LABS: FREE T4 1.01 NG/DL (0.89-1.76)
[2025-04-13 17:12] LABS: HCG, SERUM QUALITATIVE NEGATIVE (NEGATIVE)
[2025-04-13 17:16] LABS: CPK CREATINE PHOSPHOKINASE 180 U/L (34-145); MB/CK RELATIVE INDEX 1.44 (< OR =4)
[2025-04-13 17:27] VITALS: TEMP 98.4
[2025-04-13] MEDS ORDERED: ISOVUE-370 76% 100 ML VIAL As Ordered ONE (17:40)
[2025-04-13 18:18] LABS: CK-MB VALUE MASS 2.3 NG/ML (<3.6); CPK CREATINE PHOSPHOKINASE 186 U/L (34-145); MB/CK RELATIVE INDEX 1.23 (< OR =4)
== END 2025-04-13 19:45 | disposition left against medical advice (07) ==
LOC: M ED 16:01 → EDBD 16:01 → M ED 19:45
DX: R07.9 Chest pain, unspecified (principal); R10.9 Unspecified abdominal pain; Z53.9 Procedure and treatment not carried out, unspecified reason; I10 Essential (primary) hypertension; E78.5 Hyperlipidemia, unspecified; F17.200 Nicotine dependence, unspecified, uncomplicated; F19.10 Other psychoactive substance abuse, uncomplicated; Z79.899 Other long term (current) drug therapy
CPT/HCPCS: 71045; 71275; 74177; 80048; 80076; 80143; 82077; 82550; 82553; 83690; 84439; 84443; 84484; 84703; 85025; 93005; 93041; 94760; 96374; 99284; J2060; Q9967